=== PATIENT | female | born 1955 | race Caucasian/White ===

== ENCOUNTER → 2016-10-31 | Outpatient (CLI) | payer OTHER ==
[2016-10-31 13:48] LABS: ESTIMATED AVERAGE GLUCOSE 123 mg/dl; HA1C FLAG Normal (Normal)
[2016-10-31 13:57] LABS: ALT/SGPT 44 U/L (12-78); AST/SGOT 23 U/L (15-37); BLOOD UREA NITROGEN 15 mg/dl (7-18); BUN/CREATININE RATIO 20.5 (10-20); CARBON DIOXIDE 25 mmol/L (21-32); CHLORIDE 105 mmol/L (98-107); CHOLESTEROL 191 mg/dl (0-200); CREATININE 0.73 mg/dl (0.60-1.20); GLUCOSE 112 mg/dl (70-99); POTASSIUM 3.5 mmol/L (3.5-5.1); SODIUM 140 mmol/L (136-145)
[2016-10-31 14:00] LABS: ALB/GLOB RATIO 1.2 (0.9-2); ALKALINE PHOSPHATASE 86 U/L (45-117); CHOLESTEROL/HDL RATIO 3.5; HDL CHOLESTEROL 54 mg/dl; LDL CHOLESTEROL CALCULATED 93 mg/dl; TRIGLYCERIDES 221 mg/dl (0-150); VERY LOW DENSITY LIPOPROT CALC 44 mg/dl
== END | disposition home or self-care (01) ==
LOC: C.LAB 12:36
PROVIDERS: ATTEND Family Medicine
DX: E11.9 Type 2 diabetes mellitus without complications (principal)

== ENCOUNTER → 2017-04-23 | Outpatient (CLI) | payer OTHER ==
--- NOTE | 2017-04-23 16:03 | DIAGNOSTIC IMAGING REPORT ---
PELVIC COMPLETE NON OB, TRANSVAG-FEMALE PELVIS CLINICAL HISTORY: 61 years-old Female presenting with PELVIC PAIN, spotting after intercourse, postmenopausal, pain within the vagina, history of hysterectomy. TECHNIQUE: Real-time grayscale and color and spectral Doppler ultrasound imaging of the pelvis was performed first using a transabdominal probe and subsequently transvaginal for better characterization. COMPARISON: None. FINDINGS: Uterus: Surgically absent. A 0.3 x 0.2 x 0.2 cm hyperechoic focus is noted at the vaginal cuff with suggestion of posterior shadowing, consistent with calcification. Right adnexa: Not visualized, reportedly surgically absent. Left adnexa: Not visualized, reportedly surgically absent Other: No free fluid. IMPRESSION: Postsurgical changes of hysterectomy and likely bilateral salpingo-oophorectomy. Possible calcification at the vaginal cuff. If there is continuing clinical concern, cross-sectional imaging could be obtained for better characterization. Electronically signed by: Juliano Cabrales M.D. 04/23/2017 4:02 PM Dictated Date/Time: 04/23/2017 4:00 PM
== END | disposition home or self-care (01) ==
LOC: C.ULTR 14:54
PROVIDERS: ATTEND Family Medicine
DX: N94.10 Unspecified dyspareunia (principal)

== ENCOUNTER → 2017-08-27 | Outpatient (CLI) | payer OTHER ==
[~2017-08-27] MED LIST: GADAVIST IV PRN
--- NOTE | 2017-08-27 23:13 | DIAGNOSTIC IMAGING REPORT ---
Brain MRI WITH AND WITHOUT CONTRAST HISTORY: HEADACHE TECHNIQUE: Multiplanar multisequence MRI of the brain was performed both before and after the intravenous administration of contrast. COMPARISON STUDY: None. FINDINGS: There is no mass, hematoma, midline shift, or acute infarct. The paranasal sinuses are clear. The mastoid air cells are clear. The ventricles and sulci demonstrate mild age-related involutional changes. Scattered foci of T2 hyperintensity seen within the periventricular and subcortical white matter are nonspecific but suggestive of mild microvascular ischemic changes. The major vascular flow voids at the skull base are well-maintained. No abnormal enhancement. The orbits appear unremarkable. IMPRESSION: No acute intracranial abnormality. A few scattered foci of T2 hyperintensity seen within the periventricular and subcortical white matter are nonspecific but favor mild microvascular ischemic change. Electronically signed by: Alex Champion M.D. 08/27/2017 11:12 PM Dictated Date/Time: 08/27/2017 11:05 PM
== END | disposition home or self-care (01) ==
LOC: C.MRI 19:53
PROVIDERS: ATTEND Family Medicine
DX: R51 Headache (principal)

== ENCOUNTER → 2017-11-21 | Outpatient (CLI) | payer OTHER | END | disposition home or self-care (01) | LOC: C.LAB 11:46 | PROVIDERS: ATTEND Psychiatry & Neurology Neurology | DX: G43.909 Migraine, unspecified, not intractable, without status migrainosus (principal) ==

== ENCOUNTER 2018-09-16 16:57 | Inpatient (IN) ==
[2018-09-16 18:26] LABS: Basophils # (auto) 0.06 K/uL (0-0.2); Basophils % (auto) 0.6 %; Eosinophils # (auto) 0.35 K/uL (0-0.5); Eosinophils % (auto) 3.5 %; Hematocrit (blood only) 42.2 % (37-47); Hemoglobin 14.6 g/dL (12.0-16.0); Immature Granulocytes # (auto) 0.02 K/uL (0.00-0.02); Immature Granulocytes % (auto) 0.2 %; Lymphocytes # (auto) 3.34 K/uL (1.2-3.4); Lymphocytes % (auto) 33.2 %; Mean Corpuscular Hgb Conc 34.6 g/dL (32-36); Mean Corpuscular Volume 90.8 fL (80-100); Mean Platelet Volume 9.5 fL (7.4-10.4); Monocytes # (auto) 0.87 K/uL (0.11-0.59); Monocytes % (auto) 8.6 %; Neutrophils # (auto) 5.43 K/uL (1.4-6.5); Neutrophils % (auto) 53.9 %; Platelet Count 279 K/uL (130-400); RDW Coefficient of Variation 13.1 % (11.5-14.5); RDW Standard Deviation 42.7 fL (36.4-46.3); Red Blood Count 4.65 M/uL (4.2-5.4); White Blood Count 10.07 K/uL (4.8-10.8)
[2018-09-16 18:35] LABS: INR 1.1 (0.9-1.1); Partial Thromboplastin Ratio 0.9; Prothrombin Time 10.7 Seconds (9.0-12.0)
[2018-09-16 18:45] LABS: BUN Creatinine Ratio 22.6 (10-20); Blood Urea Nitrogen 17 mg/dl (7-18); Calcium 9.6 mg/dl (8.5-10.1); Carbon Dioxide 28 mmol/L (21-32); Chloride 103 mmol/L (98-107); Creatinine Clr Calc Pharmacy 88.4 ml/min; Est GFR (African American) 96.6; Est GFR (Non-African American) 83.3; Glucose 92 mg/dl (70-99); Magnesium 2.2 mg/dl (1.8-2.4); Potassium 4.1 mmol/L (3.5-5.1); Sodium 136 mmol/L (136-145)
[2018-09-16 18:49] LABS: Troponin I < 0.015 ng/ml (0-0.045)
--- NOTE | 2018-09-16 19:05 | CT Scan Report ---
CT head/brain wo con CLINICAL HISTORY: Left facial droop. Possible stroke COMPARISON STUDY: MRI the brain dated 08/27/2017 TECHNIQUE: Axial CT of the brain is performed from the vertex to the skull base. IV contrast was not administered for this examination. A dose lowering technique was utilized adhering to the principles of ALARA. CT DOSE: 537.48 mGy.cm FINDINGS: No intra or extra-axial mass lesions are visualized. There is no CT evidence of acute cortical infarc tion. There is no evidence of midline shift. There is no acute hemorrhage. No calvarial fractures ar e visualized. There are patchy white matter hypodensities likely on a small vessel basis. 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 There is no evidence of acute sinusitis IMPRESSION: No acute intracranial findings Electronically signed by: Melvin Cohen M.D. 09/16/2018 7:04 PM
[2018-09-16] MEDS ORDERED: KETOROLAC TROMETHAMINE 15 MG/ML VIAL IV STA ×2 (19:39→22:41)
[2018-09-16 20:26] LABS: Lyme Ab IgG w/WB Rflx Negative (Negative); Lyme Ab IgM w/WB Rflx Negative (Negative)
--- NOTE | 2018-09-16 21:35 | Emergency Department Note ---
Entered by Lakia Eduardo acting as a scribe for Abad Llanos History of Present Illness General Chief complaint: Stroke/CVA Symptoms Stated complaint: slurring speach, facial droop, headache Time Seen by Provider: 09/16/18 17:11 Source: patient and family History of Present Illness Provider complaint: stroke symptoms Onset (ago): day(s) (yesterday at 1500) Location: head Pain Consistency: + intermittent Maximum Pain Intensity: 5 Quality: + other (stroke symptoms) Associated symptoms: + headaches and + other (slurred speech, facial droop) The patient is a 62 year old female who presents to the Emergency Room with complaints of intermittent stroke symptoms beginning yesterday at 1500. The patient states that she has chronic fatigue but states that yesterday she was at the grocery store and had to hold onto the cart more than usual. The patient also reports having 2 episodes of slurred speech yesterday. She states that she has a CPAP and that she has been having problems and will see her doctor. The patient reports that she gets bad headaches when she does not use the CPAP. The patient reports that she did have a headache this morning which she rates at a 4 /10. She states that she chewed an aspirin afterward. Her daughter states that she noticed that the patient had a facial droop beginning this morning. Home Medications Home Medications Medication Instructions Recorded Confirmed Type Ddr Prime 1 cap PO QAM 09/16/18 History On Guard 1 cap PO QAM 09/16/18 History coQ10 (ubiquinol) 200 mg PO QAM 09/16/18 09/16/18 History losartan-hydrochlorothiazide 1 tab PO QAM 09/16/18 09/16/18 History metformin 500 mg PO BID 09/16/18 09/16/18 History montelukast 10 mg PO HS 09/16/18 09/16/18 History multivitamin 2 tab PO QAM 09/16/18 09/16/18 History pravastatin 40 mg PO HS 09/16/18 09/16/18 History venlafaxine 75 mg PO DAILY 09/16/18 09/16/18 History venlafaxine 150 mg PO DAILY 09/16/18 09/16/18 History Allergies Allergy/AdvReac Type Severity Reaction Status Date / Time amoxicillin Allergy Intermediate Hives and Verified 09/16/18 18:31 swelling Past Med/Surg History Medical History Chronic fatigue (Chronic) Social History Feels Safe at Home: Yes Smoking Status: Never smoker Preferred Language: Portuguese Review of Systems See HPI for pertinent positives & negatives. and A total of 10 systems reviewed and were otherwise negative Physical Exam Vital Signs Vital Signs - 24 hr 09/16/18 16:58 09/16/18 17:03 09/16/18 17:32 Temperature 36.8 C Temperature Source Oral Sepsis Recent Fever Within 48 Hours No Sepsis New/Unexplained Change in Mental Status No Sepsis Action Taken by Nursing No Action Required Pulse Rate 88 80 Respiratory Rate 17 16 Respiratory Effort / Characteristics Non-Labored Respiratory Depth Normal Respiratory Pattern Regular Blood Pressure 168/95 H Blood Pressure Mean 119 Blood Pressure Position Sitting Pulse Oximetry 98 Oxygen Delivery Method Room Air Room Air 09/16/18 17:40 09/16/18 17:48 09/16/18 17:49 Temperature Temperature Source Sepsis Recent Fever Within 48 Hours Sepsis New/Unexplained Change in Mental Status Sepsis Action Taken by Nursing Pulse Rate 78 78 79 Respiratory Rate 13 19 13 Respiratory Effort / Characteristics Respiratory Depth Respiratory Pattern Blood Pressure 171/95 H 170/112 H Blood Pressure Mean 120 131 Blood Pressure Position Pulse Oximetry Oxygen Delivery Method 09/16/18 17:51 09/16/18 18:00 09/16/18 18:10 Temperature Temperature Source Sepsis Recent Fever Within 48 Hours Sepsis New/Unexplained Change in Mental Status Sepsis Action Taken by Nursing Pulse Rate 78 79 81 Respiratory Rate 19 17 19 Respiratory Effort / Characteristics Respiratory Depth Respiratory Pattern Blood Pressure Blood Pressure Mean Blood Pressure Position Pulse Oximetry Oxygen Delivery Method 09/16/18 18:21 09/16/18 18:31 09/16/18 19:29 Temperature Temperature Source Sepsis Recent Fever Within 48 Hours Sepsis New/Unexplained Change in Mental Status Sepsis Action Taken by Nursing Pulse Rate 79 81 83 Respiratory Rate 14 13 Respiratory Effort / Characteristics Respiratory Depth Respiratory Pattern Blood Pressure Blood Pressure Mean Blood Pressure Position Pulse Oximetry Oxygen Delivery Method 09/16/18 19:30 09/16/18 19:31 Temperature Temperature Source Sepsis Recent Fever Within 48 Hours Sepsis New/Unexplained Change in Mental Status Sepsis Action Taken by Nursing Pulse Rate 79 80 Respiratory Rate 12 10 L Respiratory Effort / Characteristics Respiratory Depth Respiratory Pattern Blood Pressure 179/92 H Blood Pressure Mean 121 Blood Pressure Position Pulse Oximetry Oxygen Delivery Method GENERAL: She is oriented to person, place, and time. She appears well- developed and well-nourished. She does not appear distressed. ____ HENT: Exam performed. -Head: Normocephalic and atraumatic. - Right Ear: External ear normal. No mastoid tenderness. -Left Ear: External ear normal. No mastoid tenderness. -Mouth/Throat: The oropharynx is clear and moist. No trismus in the jaw. No dental abscesses or uvula swelling. No oropharyngeal exudate or tonsillar abscesses. ____ EYES: Conjunctivae and EOM are normal. Pupils are equal, round, and reactive to light. Right eye exhibits no discharge. Left eye exhibits no discharge. No scleral icterus. ____ NECK: Normal range of motion. Neck supple. No JVD present. No spinous process tenderness present. No carotid bruit present. No rigidity. No tracheal deviation and normal range of motion present. No Brudzinski's sign and no Kernig 's sign noted. ____ CV: Normal rate, regular rhythm, normal heart sounds and intact distal pulses. There is no peripheral edema. Palpable radial pulses bue. ____ PULM/CHEST: Effort normal and breath sounds normal. No respiratory distress. No stridor. She has no wheezes. She has no rales. -Chest Wall: She exhibits no tenderness. ____ ABD: The abdomen is soft. Bowel sounds are normal. She has no distension. No mass is present. There is no tenderness. There is no rebound, no guarding, no Valverde's sign and no tenderness at McBurney's point. Rovsig negative MUSC/SKEL: Normal range of motion. There is no peripheral edema, tenderness or deformity. LYMPH: No cervical adenopathy. ____ NEURO: NIHSS 2. Mild right-sided facial droop and mild dysarthria. SKIN: Skin is warm and dry. She is not diaphoretic. ____ PSYCH: She has a normal mood and affect. Her behavior is normal. Judgment and thought content normal. ____ Course 1717: Past medical records reviewed. The patient was evaluated in room C6, and a complete history and physical examination were performed. Patient is not a TPA candidate given her symptoms of dysarthria began over 24 hours ago. No code stroke was called at this time. 1938: The patient's CT and labs were within normal limits. I discussed the patient's case with Dr. Gerardo Gunderson. The patient most likely suffered a stroke. She will be admitted for further testing and neurology tests. Dr. Anaya asked for a CTA of the head and neck be done as well as a Lyme screen. Consultations Consultation #1: Dr. Gerardo Gunderson Time: 19:38 Administered Medications Discontinued Medications Ketorolac Tromethamine (Toradol) 15 mg IV NOW STA Stop: 09/16/18 19:40 Last Admin: 09/16/18 19:57 Dose: 15 mg Medical Decision Making Medical Records Attestation: I reviewed the patient's medical records. Home Medications Current Medication List: was personally reviewed by me Laboratory Data Attestation: I reviewed the patient's lab results. Result diagrams: 09/16/18 18:02 09/16/18 18:02 Lab Results 09/16/18 09/16/18 09/16/18 Range/Units 18:02 18:02 18:02 WBC 10.07 (4.8-10.8) K/uL RBC 4.65 (4.2-5.4) M/uL Hgb 14.6 (12.0-16.0) g/dL Hct 42.2 (37-47) % MCV 90.8 (80-100) fL MCH 31.4 (25-34) pg MCHC 34.6 (32-36) g/dL RDW Std Deviation 42.7 (36.4-46.3) fL RDW Coeff of Homa 13.1 (11.5-14.5) % Plt Count 279 (130-400) K/uL MPV 9.5 (7.4-10.4) fL Immature Gran % (Auto) 0.2 % Neut % (Auto) 53.9 % Lymph % (Auto) 33.2 % [place] % (Auto) 8.6 % Eos % (Auto) 3.5 % Baso % (Auto) 0.6 % Immature Gran # (Auto) 0.02 (0.00-0.02) K/uL Neut # (Auto) 5.43 (1.4-6.5) K/uL Lymph # (Auto) 3.34 (1.2-3.4) K/uL [place] # (Auto) 0.87 H (0.11-0.59) K/uL Eos # (Auto) 0.35 (0-0.5) K/uL Baso # (Auto) 0.06 (0-0.2) K/uL PT 10.7 (9.0-12.0) Seconds INR 1.1 (0.9-1.1) APTT 24.0 (21.0-31.0) Seconds PTT Ratio 0.9 Sodium 136 (136-145) mmol/L Potassium 4.1 (3.5-5.1) mmol/L Chloride 103 (98-107) mmol/L Carbon Dioxide 28 (21-32) mmol/L Anion Gap 5.0 (3-11) BUN 17 (7-18) mg/dl Creatinine 0.77 (0.6-1.2) mg/dl Est Cr Clr Drug Dosing 88.4 ml/min Est GFR ( Amer) 96.6 Est GFR (Non-Af Amer) 83.3 BUN/Creatinine Ratio 22.6 H (10-20) Glucose 92 (70-99) mg/dl POC Glucose (70-99) Calcium 9.6 (8.5-10.1) mg/dl Magnesium 2.2 (1.8-2.4) mg/dl Troponin I < 0.015 (0-0.045) ng/ml Lyme Disease IgG Ab (Negative) Lyme Disease IgM Ab (Negative) Blood Type Antibody Screen 09/16/18 09/16/18 09/16/18 Range/Units 18:02 18:10 18:13 WBC (4.8-10.8) K/uL RBC (4.2-5.4) M/uL Hgb (12.0-16.0) g/dL Hct (37-47) % MCV (80-100) fL MCH (25-34) pg MCHC (32-36) g/dL RDW Std Deviation (36.4-46.3) fL RDW Coeff of [place] (11.5-14.5) % Plt Count (130-400) K/uL MPV (7.4-10.4) fL Immature Gran % (Auto) % Neut % (Auto) % Lymph % (Auto) % [place] % (Auto) % Eos % (Auto) % Baso % (Auto) % Immature Gran # (Auto) (0.00-0.02) K/uL Neut # (Auto) (1.4-6.5) K/uL Lymph # (Auto) (1.2-3.4) K/uL [place] # (Auto) (0.11-0.59) K/uL Eos # (Auto) (0-0.5) K/uL Baso # (Auto) (0-0.2) K/uL PT (9.0-12.0) Seconds INR (0.9-1.1) APTT (21.0-31.0) Seconds PTT Ratio Sodium (136-145) mmol/L Potassium (3.5-5.1) mmol/L Chloride (98-107) mmol/L Carbon Dioxide (21-32) mmol/L Anion Gap (3-11) BUN (7-18) mg/dl Creatinine (0.6-1.2) mg/dl Est Cr Clr Drug Dosing ml/min Est GFR ( Amer) Est GFR (Non-Af Amer) BUN/Creatinine Ratio (10-20) Glucose (70-99) mg/dl POC Glucose 94 (70-99) Calcium (8.5-10.1) mg/dl Magnesium (1.8-2.4) mg/dl Troponin I (0-0.045) ng/ml Lyme Disease IgG Ab Negative (Negative) Lyme Disease IgM Ab Negative (Negative) Blood Type O Positive Antibody Screen NEGATIVE Imaging Data Radiologist's Impression: Radiology results as stated below per my review and the radiologist's interpretation: CT head/brain wo con CLINICAL HISTORY: Left facial droop. Possible stroke COMPARISON STUDY: MRI the brain dated 08/27/2017 TECHNIQUE: Axial CT of the brain is performed from the vertex to the skull base. IV contrast was not administered for this examination. A dose lowering technique was utilized adhering to the principles of ALARA. CT DOSE: 537.48 mGy.cm FINDINGS: No intra or extra-axial mass lesions are visualized. There is no CT evidence of acute cortical infarction. There is no evidence of midline shift. There is no acute hemorrhage. No calvarial fractures are visualized. There are patchy white matter hypodensities likely on a small vessel basis. 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 There is no evidence of acute sinusitis IMPRESSION: No acute intracranial findings Electronically signed by: Melvin Cohen M.D. 09/16/2018 7:04 PM ECG Data Attestation: I personally reviewed and interpreted this ECG as follows: Indication: other (stroke symptoms) Rate (beats per minute): 79 Rhythm: sinus rhythm Findings: + other ([place], QRS, QTC within normal limits); no ST depression and no ST elevation Blood Pressure Blood Pressure Findings: Elevated blood pressure Blood Pressure Disposition: further management by hospitalist MDM Narrative 1716: Past medical records reviewed. The patient was evaluated in room C6, and a complete history and physical examination were performed. Patient is not a TPA candidate given her symptoms of dysarthria began over 24 hours ago. No code stroke was called at this time. 193: The patient's CT and labs were within normal limits. I discussed the patient's case with Dr. Anaya[facility]. The patient most likely suffered a stroke. She will be admitted for further testing and neurology tests. Dr. Anaya asked for a CTA of the head and neck be done as well as a Lyme screen. Impression & Plan Stroke Discharge Plan Visit Data Chief Complaint: Stroke/CVA Symptoms Stated Complaint: slurring speach, facial droop, headache ED Provider: Abad Llanos Discharge Problem: Stroke Patient Disposition: Being Evaluated by Hospitalist Forms Stand Alone Forms: My [facility] Prescriptions Prescriptions: No Action venlafaxine 75 mg capsule,extended release 24hr 75 mg PO DAILY RF: 0 pravastatin 40 mg tablet 40 mg PO HS RF: 0 venlafaxine 150 mg capsule,extended release 24hr 150 mg PO DAILY RF: 0 montelukast 10 mg tablet 10 mg PO HS RF: 0 losartan-hydrochlorothiazide 50-12.5 mg tablet 1 tab PO QAM RF: 0 metformin 500 mg tablet extended release 24 hr 500 mg PO BID RF: 0 multivitamin Tablet,Chewable 2 tab PO QAM RF: 0 coQ10 (ubiquinol) 200 mg Capsule 200 mg PO QAM RF: 0 Ddr Prime 1 cap PO QAM RF: 0 On Guard 1 cap PO QAM RF: 0 Referrals Referrals: Michelle Ojeda MD [Primary Care Provider] - The scribe's documentation has been prepared under my direction and personally reviewed by me in its entirety. I confirm that the note above accurately reflects all work, treatment, procedures, and medical decision making performed by me.
[2018-09-17] MEDS ORDERED: GADOBUTROL 65ML VIAL IV PRN (01:23)
[2018-09-17] MEDS ORDERED: ACETAMINOPHEN 1000 MG/100 ML IV IV PRN (01:27)
[2018-09-17] MEDS ORDERED: NSS + 20MEQ KCL 20 MEQ/1,000 ML BAG IV SCH (01:27)
[2018-09-17] MEDS ORDERED: PHARMACIST DISCHARGE MED REC CONSULT PRN (01:27)
[2018-09-17 02:08] LABS: Basophils # (auto) 0.06 K/uL (0-0.2); Basophils % (auto) 0.6 %; Eosinophils # (auto) 0.36 K/uL (0-0.5); Eosinophils % (auto) 3.3 %; Hematocrit (blood only) 39.9 % (37-47); Hemoglobin 13.6 g/dL (12.0-16.0); Immature Granulocytes # (auto) 0.02 K/uL (0.00-0.02); Immature Granulocytes % (auto) 0.2 %; Lymphocytes # (auto) 2.93 K/uL (1.2-3.4); Lymphocytes % (auto) 26.9 %; Mean Corpuscular Hgb Conc 34.1 g/dL (32-36); Mean Corpuscular Volume 90.7 fL (80-100); Mean Platelet Volume 9.2 fL (7.4-10.4); Monocytes # (auto) 0.97 K/uL (0.11-0.59); Monocytes % (auto) 8.9 %; Neutrophils # (auto) 6.54 K/uL (1.4-6.5); Neutrophils % (auto) 60.1 %; Platelet Count 273 K/uL (130-400); RDW Coefficient of Variation 12.9 % (11.5-14.5); White Blood Count 10.88 K/uL (4.8-10.8)
[2018-09-17 02:17] LABS: INR 1.1 (0.9-1.1); Partial Thromboplastin Time 25.4 Seconds (21.0-31.0)
[2018-09-17 02:25] LABS: Albumin Level 4.1 gm/dl (3.4-5.0); BUN Creatinine Ratio 21.8 (10-20); Bilirubin Direct 0.2 mg/dl (0-0.2); Calcium 9.2 mg/dl (8.5-10.1); Creatinine Clr Calc Pharmacy 88.4 ml/min; Est GFR (African American) 96.6; Est GFR (Non-African American) 83.3; Potassium 3.6 mmol/L (3.5-5.1)
[2018-09-17 02:27] LABS: Albumin Globulin Ratio 1.2 (0.9-2); Bilirubin,Total 0.7 mg/dl (0.2-1); Globulin 3.4 gm/dl (2.5-4.0); Total Protein 7.5 gm/dl (6.4-8.2)
--- NOTE | 2018-09-17 02:29 | History & Physical Report ---
Date of Service September 16, 2018 Assessment & Plan (1) Stroke: Symptoms of facial droop, slurred speech and right upper extremity transient weakness. CT head negative for acute event. CTA head neck not done due to insufficient IV access. Order MRI of brain without contrast. Order MRA of head without contrast. Order MRA of neck without and with contrast. Aspirin 324 mg p.o. daily in a.m., however, if not cleared by speech therapy, changed to chewable. Order arterial hypercoagulable workup. Neurochecks. Stroke without TPA protocol ordered. Present on Admission?: Yes (2) Hypertension: Allow permissive hypertension overnight. Patient is n.p.o. Hold losartan/HCTZ. Lopressor 5 mg IV every 4 hours as needed systolic blood pressure greater than 170. Present on Admission?: Yes (3) Hyperlipidemia: Check a fasting lipid panel. When cleared by speech therapy, will resume pravastatin 40 mg at bedtime. Present on Admission?: Yes (4) Diabetes mellitus: Hold metformin. N.p.o. status until cleared by speech therapy. Placed on Accu-Cheks before meals and at bedtime with NovoLog coverage per scale. Check hemoglobin A1c. Present on Admission?: Yes (5) Anxiety and depression: When no longer n.p.o. and cleared by speech therapy, will resume venlafaxine 225 mg daily. Present on Admission?: Yes (6) Chronic fatigue syndrome: Treated as with anxiety depression above. Present on Admission?: Yes History of Present Illness Chief Complaint: The patient presents to the emergency department with slurring of speech, facial droop and headache. Primary Care Provider: Michelle Ojeda MD The patient is a 62-year-old female who developed initial symptoms of 2 episodes of slurred speech and facial droop on the evening of 09/15, that resolved spontaneously, and then recurred on the morning of 09/16. She has history of chronic fatigue, and while at the grocery store, had significantly more difficulty walking than usual. She is also had an intermittent headache since morning of 09/16. Because of the persistence of her symptoms, her family had her come to the emergency department for assessment. She reports no difference in usual activities, sleeping habits, eating habits etc. over the previous week. She is never had these symptoms in the past. She does follow with Dr. Carmona for chronic fatigue syndrome. She also reports some briefly decreased strength in her right upper extremity. Allergies Allergy/AdvReac Type Severity Reaction Status Date / Time amoxicillin Allergy Intermediate Hives and Verified 09/16/18 18:31 swelling Home Medications Home Medications Medication Instructions Recorded Confirmed Type Ddr Prime 1 cap PO QAM 09/16/18 History On Guard 1 cap PO QAM 09/16/18 History coQ10 (ubiquinol) 200 mg PO QAM 09/16/18 09/16/18 History losartan-hydrochlorothiazide 1 tab PO QAM 09/16/18 09/16/18 History metformin 500 mg PO BID 09/16/18 09/16/18 History montelukast 10 mg PO HS 09/16/18 09/16/18 History multivitamin 2 tab PO QAM 09/16/18 09/16/18 History pravastatin 40 mg PO HS 09/16/18 09/16/18 History venlafaxine 75 mg PO DAILY 09/16/18 09/16/18 History venlafaxine 150 mg PO DAILY 09/16/18 09/16/18 History Past Med/Surg History Social History Feels Safe at Home: Yes Smoking Status: Never smoker Preferred Language: Faroese Review of Systems The patient denies chest pain, palpitations, shortness of breath, dyspnea on exertion, cough, lower extremity swelling, sore throat, fevers, chills, sweats, nausea, vomiting, diarrhea , constipation, abdominal pain, pelvic pain, blood in urine or stool, dysuria, urinary frequency or urgency, memory loss, loss of consciousness, rash, abnormal bruising or bleeding, generalized arthralgias or myalgias, back or neck pain, or night sweats. The review of systems is otherwise negative other than for that already noted above, and at least 10 systems have been reviewed. Physical Exam 2 Vital Signs (Past 24 Hours): Last Vital Signs Temp 36.8 C 09/16/18 17:03 Pulse 85 09/16/18 22:51 Resp 15 09/16/18 22:51 BP 149/100 H 09/16/18 22:51 Pulse Ox 98 09/16/18 17:03 Physical Exam: The patient is awake, alert and oriented 3, normocephalic and atraumatic, lying in bed and in no acute distress. HEENT--PERRL, EOMI, mucous membranes and oropharynx dry. Neck--supple. No JVD. No bruits. Thyroid normal, trachea midline, no adenopathy. Heart--normal S1 and S2. No murmurs, rubs or gallops. Lungs--clear bilaterally, no respiratory distress, no accessory muscle use. Abdomen--normal bowel sounds and soft. Nontender. Nondistended, no hernias or masses, no organomegaly. Extremities--no cyanosis or clubbing. No edema. There are good distal pulses b/ l. Dermatologic--normal skin turgor, normal color, no abnormal lymph nodes, no rash. Neurologic--cranial nerves II through XII grossly intact. Rheumatologic--normal range of motion. Psychiatric--normal affect. Results & Data Laboratory Results Laboratory Results WBC 10.88 K/uL (4.8-10.8) H 09/17/18 01:44 RBC 4.40 M/uL (4.2-5.4) 09/17/18 01:44 Hgb 13.6 g/dL (12.0-16.0) 09/17/18 01:44 Hct 39.9 % (37-47) 09/17/18 01:44 MCV 90.7 fL (80-100) 09/17/18 01:44 MCH 30.9 pg (25-34) 09/17/18 01:44 MCHC 34.1 g/dL (32-36) 09/17/18 01:44 RDW Std Deviation 43.0 fL (36.4-46.3) 09/17/18 01:44 RDW Coeff of [place] 12.9 % (11.5-14.5) 09/17/18 01:44 Plt Count 273 K/uL (130-400) 09/17/18 01:44 MPV 9.2 fL (7.4-10.4) 09/17/18 01:44 Immature Gran % (Auto) 0.2 % 09/17/18 01:44 Neut % (Auto) 60.1 % 09/17/18 01:44 Lymph % (Auto) 26.9 % 09/17/18 01:44 [place] % (Auto) 8.9 % 09/17/18 01:44 Eos % (Auto) 3.3 % 09/17/18 01:44 Baso % (Auto) 0.6 % 09/17/18 01:44 Immature Gran # (Auto) 0.02 K/uL (0.00-0.02) 09/17/18 01:44 Neut # (Auto) 6.54 K/uL (1.4-6.5) H 09/17/18 01:44 Lymph # (Auto) 2.93 K/uL (1.2-3.4) 09/17/18 01:44 [place] # (Auto) 0.97 K/uL (0.11-0.59) H 09/17/18 01:44 Eos # (Auto) 0.36 K/uL (0-0.5) 09/17/18 01:44 Baso # (Auto) 0.06 K/uL (0-0.2) 09/17/18 01:44 PT 11.0 Seconds (9.0-12.0) 09/17/18 01:44 INR 1.1 (0.9-1.1) 09/17/18 01:44 APTT 25.4 Seconds (21.0-31.0) 09/17/18 01:44 PTT Ratio 1.0 09/17/18 01:44 Sodium 136 mmol/L (136-145) 09/16/18 18:02 Potassium 4.1 mmol/L (3.5-5.1) 09/16/18 18:02 Chloride 103 mmol/L (98-107) 09/16/18 18:02 Carbon Dioxide 28 mmol/L (21-32) 09/16/18 18:02 Anion Gap 5.0 (3-11) 09/16/18 18:02 BUN 17 mg/dl (7-18) 09/16/18 18:02 Creatinine 0.77 mg/dl (0.6-1.2) 09/16/18 18:02 Est Cr Clr Drug Dosing 88.4 ml/min 09/16/18 18:02 Est GFR ( Amer) 96.6 09/16/18 18:02 Est GFR (Non-Af Amer) 83.3 09/16/18 18:02 BUN/Creatinine Ratio 22.6 (10-20) H 09/16/18 18:02 Glucose 92 mg/dl (70-99) 09/16/18 18:02 POC Glucose 94 (70-99) 09/16/18 18:13 Calcium 9.6 mg/dl (8.5-10.1) 09/16/18 18:02 Magnesium 2.2 mg/dl (1.8-2.4) 09/16/18 18:02 Troponin I < 0.015 ng/ml (0-0.045) 09/16/18 18:02 Lyme Disease IgG Ab Negative (Negative) 09/16/18 18:10 Lyme Disease IgM Ab Negative (Negative) 09/16/18 18:10 Blood Type O Positive 09/16/18 18:02 Antibody Screen NEGATIVE 09/16/18 18:02 Diagnostic Findings [place], [place] [phone] CT Scan Report Patient: ROJAS WATERS Date: 09/16/18 MR#: [id number]: [address] [facility] Acct ID:[id number]: Date: 1955[facility] Zip: [place] [address] Age: 62Location: ED Sex: F Room/Bed: Att Phy: Diagnosis: slurring speach, facial droop, headache Lori Phy: Michelle Ojeda, MDService Date: 09/16/18 Fam Phy: Interpreting Phy: Melvin Cohen MD Admit Phy: Ordering Phy: Abad Llanos M.D. cc: ~ CT head/brain wo con CLINICAL HISTORY: Left facial droop. Possible stroke COMPARISON STUDY: MRI the brain dated 08/27/2017 TECHNIQUE: Axial CT of the brain is performed from the vertex to the skull base. IV contrast was not administered for this examination. A dose lowering technique was utilized adhering to the principles of ALARA. CT DOSE: 537.48 mGy.cm FINDINGS: No intra or extra-axial mass lesions are visualized. There is no CT evidence of acute cortical infarction. There is no evidence of midline shift. There is no acute hemorrhage. No calvarial fractures are visualized. There are patchy white matter hypodensities likely on a small vessel basis. 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 There is no evidence of acute sinusitis IMPRESSION: No acute intracranial findings Electronically signed by: Melvin Cohen M.D. 09/16/2018 7:04 PM Dictated: 09/16/181901 Transcribed: 09/16/18 190 Code Status & VTE Plan Code Status Full code VTE Prophylaxis Plan VTE Prophylaxis will be ordered: Yes _ (1) Stroke CVA mechanism: unspecified Laterality of affected vessel: Precerebral and cerebral artery: Qualified Code(s): I63.9 - Cerebral infarction, unspecified
[2018-09-17] MEDS ORDERED: METOPROLOL TARTRATE 1 MG/ML VIAL IV PRN (02:40)
--- NOTE | 2018-09-17 06:43 | Magnetic Resonance Report ---
MR angio head wo con HISTORY: Mental status change stroke/CVA symtpoms TECHNIQUE: 3-D [id number] MRA of the brain was performed without contrast. COMPARISON STUDY: None. FINDINGS: Visualized intracranial internal carotid arteries, distal vertebral arteries, and basilar a rtery are widely patent. There is no significant stenosis, occlusion, or aneurysm seen within the renetta ateral ACAs, MCAs, or broach trouble shooter. IMPRESSION: No significant stenosis, occlusion, or aneurysm within the [place] of [place]. The above report was generated using voice recognition software. It may contain grammatical, syntax or spelling errors. Electronically signed by: Amilcar Ochoa M.D. 09/17/2018 6:42 AM
[2018-09-17 07:00] LABS: Estimated Average Glucose 143 mg/dl
--- NOTE | 2018-09-17 07:16 | Magnetic Resonance Report ---
MRI OF THE BRAIN WITHOUT CONTRAST CLINICAL HISTORY: stroke/cva symptoms COMPARISON STUDY: MRI of the brain August 27, [address] September 16, 2018. TECHNIQUE: Utilizing a 1.5 Michelle magnet and dedicated coil, multiplanar, multiecho imaging of the bra in was performed without IV contrast. FINDINGS: Note is made of a 1 cm focus of restricted diffusion within the periventricular left fronta l lobe within the [place] radiata. There is no mass effect or evidence for hemorrhage. Ventricular sys tem is stable. Basilar cisterns are patent. There are no extra-axial collections. White matter T2 hyp erintense foci suggest small vessel disease. Calvarial signal is maintained. Orbits are unremarkable. No intracranial masses are identified on this unenhanced exam. IMPRESSION: Small acute infarct within the periventricular left frontal lobe. Electronically signed by: Jv Ojeda M.D. 09/17/2018 7:15 AM
--- NOTE | 2018-09-17 07:28 | Magnetic Resonance Report ---
MR angio neck wo/w con HISTORY: 62 years-old Female stroke/CVA symptoms acute strokelike symptoms COMPARISON: MRI brain and MRA head 09/16/2017 TECHNIQUE: MRA of the neck was obtained both with and without the use of 9.6 mL Gadavist with 3-D jenny e-of-flight sequencing and MIP reformats. All measurements were obtained according to NASCET criteria . FINDINGS: Bilateral common and internal carotid arteries are widely patent. The visualized subclavian arteries are also widely patent. The vertebral arteries are codominant and widely patent. Mild tortuosity abou t the mid V2 segment left vertebral artery. Visualized basilar artery appears normal and patent. No a neurysm, dissection, high-grade stenosis or proximal branch occlusion. IMPRESSION: Unremarkable MRA of the neck without aneurysm, dissection, high-grade stenosis or proxima l branch occlusion. The above report was generated using voice recognition software. It may contain grammatical, syntax o r spelling errors. Electronically signed by: Humble Mendoza M.D. 09/17/2018 7:27 AM
[2018-09-17] MEDS ORDERED: ASPIRIN 81 MG ECTAB PO SCH (09:00)
[2018-09-17] MEDS ORDERED: ASPIRIN 81 MG CHEW PO SCH (09:00)
[2018-09-17] MEDS ORDERED: HEPARIN SOD 5,000 UNIT/0.5 ML VIAL SQ SCH (09:00)
--- NOTE | 2018-09-17 10:40 | Neurology Consultation ---
Date of Consultation September 17, 2018 Assessment & Plan (1) Stroke: This is a 62-year-old right-handed female who presents with subacute posterior left frontal lacunar stroke with residual neurological deficits of mild right face droop and dysarthria. Stroke risk factors include hypertension , dyslipidemia, diabetes type 2, and obstructive sleep apnea not on CPAP. Stroke etiology likely small vessel ischemic. Recommendation: Agree with adding aspirin 81 mg daily for secondary stroke prevention. Follow-up echocardiogram results to make sure there is no signs of cardioembolic sources for stroke. Beta 2 glycoprotein's, homocystine, lupus anticoagulant, cardiolipin antibodies are pending and can be followed up in neurology clinic Agree with sleep medicine follow-up next week regarding issues with CPAP since this is a minor stroke risk factors as well. More than likely untreated obstructive sleep apnea is also contributing to her fatigue and headaches. Follow-up PT/OT and speech therapies for discharge planning. Blood pressure recommendations while in hospital 175/95-150/80 (MAPS 90-110) Avoid hypotension and dehydration Stroke risk factor modifications and recommendations: Blood pressure recommendations for the first month post hospital discharge 150/ 90-130/80, and after that blood pressure recommendations 130/80-110/70 Total cholesterol goal 100- 200 and LDL goal less than 70 Hemoglobin A1c goal less than 7 (at goal) Encourage cardiovascular exercise at least 3 times a week for 30 minutes. Recommend Holter monitor as an outpatient to rule out paroxysmal A. fib Follow-up in neurology clinic in 1 month for post stroke hospital follow-up. Thank you for allowing me to participate in this patient's care. If there is any questions or concerns, feel free to call/page me. No neurological barriers to discharge later today if desired. History of Present Illness Reason for Consultation: Stroke symptoms Attending Physician: Kremit Hidalgo MD History of Present Illness This is a 62-year-old right-handed female who presents for symptoms concerning for stroke. Reports that the day before her presentation she did notice that her speech was off and it sounded like she was drunk even though she does not drink. Noted increased tiredness and fatigue. When she woke up the next morning on the day of presentation she noted that she had a severe headache. When she went to work other people observe that she had a right facial droop the patient then presented to the emergency room. She reports that she had some mild right hand numbness while being evaluated in the emergency room. She also noted some mild proximal weakness of her right upper extremity but initially had thought that maybe it was just her fibromyalgia. Denies any other focal weakness or numbness anywhere else. Denies any visual changes. Denies any other focal neurological deficits. Has never had this before. She does report that for the past week she was having some chest pain but reports that with her chronic fatigue and fibromyalgia she intermittently does get chest pain. She denies any heart palpitations. MRI of the brain report and images reviewed by myself. The patient does have a subacute posterior left frontal lacunar infarct in the periventricular area. MRA of the head and neck was unremarkable. No signs of significant large vessel atherosclerotic disease Hemoglobin A1c 6.6. Total cholesterol 205, LDL 103, HDL 64, triglycerides 191 Past medical history: Hypertension, dyslipidemia, diabetes type 2, obstructive sleep apnea on CPAP, depression/anxiety, chronic fatigue/fibromyalgia, migrainous type headaches (patient denies migraine headaches when she was younger. She did not tolerate trial of. May last year). Patient has been seen by Dr. Carmona in neurology clinic previously for evaluation of nonspecific T2 hyperintensities on MRI which she felt were likely small vessel ischemic and not demyelination. Family history of mother with cardiac valve replacement, paternal grandfather with CAD, maternal grandmother with CAD Social history: Patient is normally independent her activities of daily living. No tobacco use. No alcohol use. No illegal drug use. Allergies Allergy/AdvReac Type Severity Reaction Status Date / Time amoxicillin Allergy Intermediate Hives and Verified 09/16/18 18:31 swelling Home Medications Home Medications Medication Instructions Recorded Confirmed Type Ddr Prime 1 cap PO QAM 09/16/18 History On Guard 1 cap PO QAM 09/16/18 History coQ10 (ubiquinol) 200 mg PO QAM 09/16/18 09/16/18 History losartan-hydrochlorothiazide 1 tab PO QAM 09/16/18 09/16/18 History metformin 500 mg PO BID 09/16/18 09/16/18 History montelukast 10 mg PO HS 09/16/18 09/16/18 History multivitamin 2 tab PO QAM 09/16/18 09/16/18 History pravastatin 40 mg PO HS 09/16/18 09/16/18 History venlafaxine 75 mg PO DAILY 09/16/18 09/16/18 History venlafaxine 150 mg PO DAILY 09/16/18 09/16/18 History Patient History Medical History HLD (hyperlipidemia) Chronic fatigue (Chronic) Social History Current Living Situation: Spouse Other Information That Helps Us Care for You: No Feels Safe at Home: Yes Safety Concerns: Feels Safe At This Time Smoking Status: Never smoker Hx Alcohol Use: No Hx Substance Use: No Beliefs That Will Affect Care: None Preferred Language: Thai Communication Ability: Effective Fisher Hand Line Required: No Review of Systems Complete review of systems otherwise negative except for the above-noted in HPI Physical Exam 2 Vital Signs (Past 24 Hours): Last Vital Signs Temp 37.1 C 09/17/18 07:23 Pulse 75 09/17/18 08:00 Resp 16 09/17/18 07:23 BP 153/79 H 09/17/18 07:23 Pulse Ox 93 09/17/18 07:23 Physical Exam: Gen.: Patient is alert and oriented in no acute distress lying in bed Heart: Regular rate and rhythm Extremities: No gross deformities or rashes noted Neurological examination: Mental status: Patient is alert and oriented to person place and time. Able to give his own history. Attention concentration normal for the situation. Remote and recent memory intact Speech is fluent with possible mild dysarthria Cranial nerves: Visual estrella intact. Funduscopic examination was unremarkable with no signs of papilledema. Pupils equally round and reactive to light. Extraocular muscles intact without nystagmus. Mild right lower facial droop. Facial sensation intact. Tongue midline. Good palatal elevation. Good shoulder shrug bilaterally. Hearing grossly intact voice. Strength: 5/5 both proximal and distal in all extremities .Tone is normal. Sensation: Grossly intact to light touch in all extremities Deep tendon reflexes: +1 in bilateral biceps and patellar. Coordination: Patient has good finger to nose without dysmetria. Station within the bed is normal. _ (1) Stroke CVA mechanism: unspecified Laterality of affected vessel: Precerebral and cerebral artery: Qualified Code(s): I63.9 - Cerebral infarction, unspecified
[2018-09-17] MEDS ORDERED: STROKE PATIENT DISCHARGE STA (16:33)
--- NOTE | 2018-09-17 16:46 | Discharge Summary ---
Date of Service September 17, 2018 Admission HPI Per Admitting Provider The patient is a 62-year-old female who developed initial symptoms of 2 episodes of slurred speech and facial droop on the evening of 09/15, that resolved spontaneously, and then recurred on the morning of 09/16. She has history of chronic fatigue, and while at the grocery store, had significantly more difficulty walking than usual. She is also had an intermittent headache since morning of 09/16. Because of the persistence of her symptoms, her family had her come to the emergency department for assessment. She reports no difference in usual activities, sleeping habits, eating habits etc. over the previous week. She is never had these symptoms in the past. She does follow with Dr. Carmona for chronic fatigue syndrome. She also reports some briefly decreased strength in her right upper extremity. Principal Diagnosis Left frontal lobe stroke Discharge Exam Constitutional WD/WN, vitals as above + obese Eyes EOM intact bilaterally; no conjunctival abnormality ENMT external ear and nose normal, oropharynx normal Neck trachea midline, no thyromegaly normal visual inspection Respiratory normal respiratory effort, lungs clear to auscultation no respiratory distress Cardiovascular RRR, no murmur, no edema Gastrointestinal (Abdomen) Inspection/Auscultation: abdomen normal to inspection; abdomen not distended Musculoskeletal no cyanosis or clubbing, extremities motor strength 5/5 Skin no rashes, warm and dry Neurologic moves all extremities and awake Speech / Cognition: normal speech Mild left facial droop Psychiatric Orientation: alert, oriented to person and cooperative Discharge Data Allergies Allergy/AdvReac Type Severity Reaction Status Date / Time amoxicillin Allergy Intermediate Hives and Verified 09/16/18 18:31 swelling Consultations 09/16/18 19:32 ED Decision to Admit Stat 09/17/18 01:27 Consult Case Management - Discharge Planning Routine Consult Neurology Routine Ordered Studies 09/16/18 17:23 CT head/brain wo con Stat 09/16/18 21:14 MR brain wo con Urgent 09/17/18 00:08 MR angio head wo con Urgent MR angio neck wo/w con Urgent Hospital Course (1) Stroke: MRI brain showed a fredis-ventricular left frontal lobe infarct. All deficits resolved except for a very mild facial droop. Echo did not show any PFO , and tele showed no atrial fibrillation. - Patient was seen by neurology with rec to start aspirin. - Discussed switch to atorvastatin (high intensity statin), but patient declined due to prior myopathies with simvastatin. Patient was encouraged to discuss with PCP and Dr. Carmona. - Will get outpatient event monitor to watch for afib. - Hypercoaguable work-up was sent and still pending on discharge. Outpatient review needed. (2) Hypertension: Allowed permissive hypertension overnight. - Restart home meds with goal BP of <130/70 in the outpatient setting. (3) Hyperlipidemia: Fasting lipid was checked and total cholesterol was 205 with LDL of 103. - Discussed switch to atorvastatin (high intensity statin), but patient declined due to prior myopathies with simvastatin. Patient was encouraged to discuss with PCP and Dr. Carmona. (4) Diabetes mellitus: A1c was 6.6% inpatient. Held metformin while inpatient. Restart on discharge. (5) Anxiety and depression: Continued venlafaxine (6) Chronic fatigue syndrome: Treated as with anxiety depression above. Total Time Total Time Spent Total Time Spent (In Minutes): 40 Total Time Includes: Examination of the Patient, Discharge Planning and Medication Reconciliation Discharge Plan Discharge Items Patient Disposition: Home - Self-Care Reason For Visit: TIA/STROKE SYMPTOMS Discharge Diagnosis: Stroke Condition: Good Discharge Goals: Improve disease control and Improve function Activity: Resume your previous activity Non-emergency contact: Primary Care Provider and Neurologist Call non-emergency contact if: your symptoms worsen and your temperature is above 101 Follow-up/Referrals: Michelle Ojeda MD [Primary Care Provider] - 09/28/18 2:00 pm (Please, follow up with Dr. Ojeda on ThursdaySeptember 28 at 2:00 pm. *If you need to change this appointment, call the office at [phone].) Amisha Prado PA-C [Physician Insulation Extruder Operator] - 10/13/18 10:00 am (Please, follow up at [facility] Neu[facility] Office on ThursdayOctober 13 at 10:00 am. *This office is located at [address] [facility] in [place]. If you need to change this appointment, call the office at [phone].) Diet: Carb Consistent or DM2 and Heart Healthy Addtl Provider Instructions: Ms. Johnston, You were admitted to the hospital with stroke that presented as facial droop, slurred speech, and weakness. We did an MRI that showed you had a small stroke in the left frontal lobe which caused these symptoms. Fortunately, most of the symptoms resolved except for a small amount of facial droop. You have several risk factors for stroke including high blood pressure, diabetes, and high cholesterol. We did an echo (sonogram) of your heart which looked good. You did not have any abnormal heart rhythms while you were here, and we are setting you up for a monitor at home to monitor your heart rhythm for 1 week. Please take a baby aspirin (81 mg) along with the pravastatin you currently take to help reduce future stroke risk. Please continue the metformin and see your primary care doctor to consider starting another medication to help get your A1c lower to help lower your risk of stroke and heart attacks. Please come back to the hospital if you have any concerning symptoms such as weakness, slurred speech, or facial droop. Risk Factors for Stroke: You can reduce your chances of stroke by working with your medical provider to adopt a healthy lifestyle. Some specific ways to lower your chance of stroke are: * If you are a smoker, now is the time to stop smoking cigarettes * If you are diabetic, improve the control of your blood sugars * Avoid excessive amounts of alcohol * Control high blood pressure * Lose weight if you are overweight * Be sure to lead an active lifestyle * Eat a healthy diet low in salt, cholesterol and fat You should know about other risk factors for stroke that you are unable to control. These include: * Age 55 years or older * Male gender * Certain racial groups: , or / * Family History of Stroke, Mini stroke or Heart Attack * Sickle Cell Disease Follow Up: It is important for you to keep your follow up appointments with your medical provider. Who to Call and When: Medical Emergencies: Call 911 immediately if you experience any of the following warning signs and symptoms of Stroke: * Sudden numbness or weakness of the face, arm or leg, especially on one side of the body * Sudden confusion, trouble speaking or understanding * Sudden trouble seeing in one or both eyes * Sudden trouble walking, dizziness, loss of balance or coordination * Sudden severe headache with no cause Do not delay calling 911 if you experience any warning signs or symptoms of a stroke. Delay in seeking medical attention may affect what treatments can be given to you. . Prescriptions: New aspirin [Ecotrin Low Strength] 81 mg Tablet,Delayed Release (/Ec) 81 mg PO QAM Qty: 30 RF: 0 Continue venlafaxine 75 mg capsule,extended release 24hr 75 mg PO DAILY RF: 0 pravastatin 40 mg tablet 40 mg PO HS RF: 0 venlafaxine 150 mg capsule,extended release 24hr 150 mg PO DAILY RF: 0 montelukast 10 mg tablet 10 mg PO HS RF: 0 losartan-hydrochlorothiazide 50-12.5 mg tablet 1 tab PO QAM RF: 0 metformin 500 mg tablet extended release 24 hr 500 mg PO BID RF: 0 multivitamin Tablet,Chewable 2 tab PO QAM RF: 0 coQ10 (ubiquinol) 200 mg Capsule 200 mg PO QAM RF: 0 Ddr Prime 1 cap PO QAM RF: 0 On Guard 1 cap PO QAM RF: 0 Visit Report Forms: [facility] [employer] Portal Stand-Alone Forms: Medications to Prevent Stroke, [facility] [employer] Krames/Other Patient Handouts: Aspirin Oral tablet, Stroke Brain Body Effects, Stroke Hours Follow, Stroke Heart Disease, Stroke Sx, TIA, Stroke Taking Meds, Eat Healthy, Attack Transient Ischemic Dc Discharge Orders: Discharge Order (Routine); Ordered 09/17/18 Ordered By: Kermit Hidalgo Admission Data Admit Date/Time: 09/16/18 23:19 Attending Provider: Kermit Hidalgo Admit Provider: Trevor Anaya Primary Care Provider: Michelle Ojeda Other Providers: Anuj Carmona ; Kermit Hidalgo Service: Telemetry
--- NOTE | 2018-09-17 20:35 | Pharmacy Report ---
Pharmacist Stroke Counseling - Date of Service September 17, 2018 - Scope: Pharmacy has been consulted to provide medication discharge counseling for this patient admitted with ischemic stroke as per the Pharmacist Discharge Counseling for Stroke Patients Protocol. - Medications on Discharge: Home Medications Medication Instructions Recorded Confirmed Ddr Prime 1 cap PO QAM 09/16/18 On Guard 1 cap PO QAM 09/16/18 coQ10 (ubiquinol) 200 mg PO QAM 09/16/18 09/16/18 losartan-hydrochlorothiazide 1 tab PO QAM 09/16/18 09/16/18 metformin 500 mg PO BID 09/16/18 09/16/18 montelukast 10 mg PO HS 09/16/18 09/16/18 multivitamin 2 tab PO QAM 09/16/18 09/16/18 pravastatin 40 mg PO HS 09/16/18 09/16/18 venlafaxine 75 mg PO DAILY 09/16/18 09/16/18 venlafaxine 150 mg PO DAILY 09/16/18 09/16/18 New Rx's Medication Instructions Recorded aspirin [Ecotrin Low Strength] 81 mg PO QAM #30 tab 09/17/18 - Action: The above medications, specifically ones for stroke treatment/prophylaxis, have been reviewed in detail with the patient and her prior to discharge. This includes indication, common adverse reactions, drug interactions, and medication administration. Medication counseling has been employed using the teach-back method to ensure understanding. - Outcome: The patient and her have demonstrated understanding of the medications. Please note, they are aware that the pharmacist will call them within 72 hours post-discharge to confirm that the appropriate medications are being taken and answer any further medication related questions the patient might have at that time. Contact information Individual to be contacted: self Relationship to patient (if applicable): N/A Phone number: [phone] Best time to call: between [phone] and [phone] Additional comments: spoke with patient about baby aspirin. Reviewed that she should discuss a high intensity statin with her PCP. She related she had myalgias with simvastatin. She is going to restart ACV since this reduced her cholesterol before. Thank you for allowing pharmacy to be involved in the care of this patient. Please call [phone] or [phone] with any additional questions
[2018-09-21 06:41] LABS: Anti Cardiolipin Ab IgG <14 GPL (< = 14); Anti Cardiolipin Ab IgM <12 MPL (< = 12); Beta-2-Microglobulin 2.78 MG/L (0.00-2.51); Lupus Anticoagulant Negative (Negative)
[2018-09-21 22:30] LABS: 18KDIGG Band NONREACTIVE (NONREACTIVE); 23KDIGG Band NONREACTIVE (NONREACTIVE); 23KDIGM Band NONREACTIVE (NONREACTIVE); 28KDIGG Band NONREACTIVE (NONREACTIVE); 30KDIGG Band NONREACTIVE (NONREACTIVE); 39KDIGG Band NONREACTIVE (NONREACTIVE); 39KDIGM Band NONREACTIVE (NONREACTIVE); 41KDIGG Band REACTIVE (NONREACTIVE); 41KDIGM Band NONREACTIVE (NONREACTIVE); 45KDIGG Band NONREACTIVE (NONREACTIVE); 58KDIGG Band NONREACTIVE (NONREACTIVE); 66KDIGG Band NONREACTIVE (NONREACTIVE); 93KDIGG Band NONREACTIVE (NONREACTIVE); Lyme Antibodies, WB IgG NEGATIVE (NEGATIVE); Lyme Antibodies, WB IgM NEGATIVE (NEGATIVE)
== END 2018-09-17 17:32 | disposition home or self-care (01) | DRG 66 ==
LOC: ED 16:57 → SUATTDRO 23:19 → 2S 23:19

== ENCOUNTER 2022-07-09 17:47 | Observation (INO) ==
[2022-07-09 19:06] LABS: Hematocrit (blood only) 42.1 % (34.1-44.9); Hemoglobin 14.1 g/dl (12.0-16.0); Mean Corpuscular Hemoglobin 30.5 pg (25.0-34.0); Mean Corpuscular Hgb Conc 33.5 g/dL (32.0-36.0); Mean Corpuscular Volume 90.9 fL (80.0-100.0); Mean Platelet Volume 9.5 fL (9.4-12.3); Platelet Count 321 K/uL (130-400); RDW Coefficient of Variation 12.8 % (11.5-14.5); Red Blood Count 4.63 M/uL (3.93-5.22); White Blood Count 8.91 K/ul (4.8-10.8)
[2022-07-09 19:25] LABS: Partial Thromboplastin Ratio 0.9; Partial Thromboplastin Time 24.8 Seconds (21.0-31.0); Prothrombin Time 10.9 Seconds (9.0-12.0)
[2022-07-09 19:31] LABS: Alanine Aminotransferase 19 U/L (7-52); Albumin Globulin Ratio 1.4 (0.9-2); Albumin Level 4.4 gm/dl (3.4-5.0); Alkaline Phosphatase 87 U/L (34-104); Anion Gap 9 (3-11); Aspartate Aminotransferase 16 U/L (13-39); Bilirubin,Total 0.4 mg/dl (0.2-1.0); Blood Urea Nitrogen 20 mg/dl (6-23); Calcium 10.2 mg/dl (8.5-10.1); Carbon Dioxide 27 mmol/L (21-32); Chloride 103 mmol/L (98-107); Est GFR (Non-African American) 69.9 ml/min; Globulin 3.2 gm/dl (2.5-4.0); Glucose 130 mg/dl (70-99(Fasting)); Magnesium 1.7 mg/dl (1.7-2.4); Potassium 3.9 mmol/L (3.5-5.1); Sodium 139 mmol/L (136-145); Total Protein 7.6 gm/dl (6.0-8.3)
[2022-07-09] MEDS ORDERED: SODIUM CHLORIDE 0.9% 1000ML 1,000 ML IV ONE (21:09)
[2022-07-09] MEDS ORDERED: OPTIRAY 320 500ml IV ONE (21:35)
--- NOTE | 2022-07-09 22:22 | Emergency Department Note ---
Impression & Plan CVA (cerebral vascular accident), Hypertension, Confusion ED Provider Note NAME: ROJAS WATERS AGE: 66 SEX: F ARRIVES VIA: Walk-In INFORMANT: Patient, ED PROVIDER(S): Raymond Vazquez MD CHIEF COMPLAINT: Confusion PLAN: Disposition: Admit MEDICAL DECISION MAKING: The patient is a pleasant 66-year-old woman with a past medical history of CVA who presents emerged department company by her and daughter for evaluation of confusion and slow thought process that is been ongoing since Thursday. She reports she "thinks she had a stroke on Thursday". She reports her foggy thinking was worse on Thursday. Her reports that she initially commented that she just felt "tired". However is noted that her sisters had talked her on the phone yesterday and were concerned that something was going on. Her daughter was able to visit with her today and further noticed that she was not acting normally and she agreed to come to the emergency department today. The patient reports that she stopped taking her aspirin sometime ago for no particular reason. She previously had a lacunar infarct in 2019. Otherwise she denies any recent illness including fevers, chills, cough, congestion, GI or symptoms. Given the patient's symptoms which are significantly different than her baseline they do agree with plan for admission for further stroke evaluation even if her CT/CTA is negative. Given symptoms have been ongoing since Thursday no indication for stroke alert. On arrival patient is no acute distress, afebrile, blood pressure 190/100s and otherwise stable vital signs. She has no focal extremity weakness. She has no overt word finding difficulty but does have slow mental processing that is noted. EKG without overt acute ischemia. WBC, H/H and platelets within normal limits. Chemistry without metabolic acidosis. Electrolytes and LFTs without significant abnormality. High- sensitivity troponin 3.8, within normal limits. COVID-19 RNA, CHIO test was negative. CT of the head and CT of the head neck were performed. Per preliminary stat read report new ischemic area is seen within the anterior left internal capsule consistent with ischemia. No severe narrowing or occlusion of large vessels are noted. Case was discussed with Dr. Choudhury, [facility] hospitalist, who will evaluate the patient for admission. Triage Nursing notes reviewed and agree them. Prior medical records reviewed Vital Signs: reviewed and remarkable for hypertension. Differential diagnosis: Infection, dehydration, metabolic abnormality, hypo/hyperglycemia, electrolyte disturbance, anemia, hypoxia, cardiac sources, intracerebral event, toxicologic, neurologic, as well as other pathologies. ER treatment provided: See below. Diagnostics interpreted by me: ECG: Sinus rhythm, 78 bpm, no ectopy, nonspecific ST and T wave abnormality, no overt ST elevation or depression, QTC 440, QRS 78. Cardiac Monitoring: An order for continuous cardiac monitoring was placed and demonstrated Sinus rhythm, 78 bpm, no ectopy. Laboratory studies: See below Imaging studies: See below Consultation(s): Case was discussed with Dr. Choudhury, [facility] hospitalist, who will evaluate the patient for admission. HPI: The patient is a pleasant 66-year-old woman with a past medical history of CVA who presents emerged department company by her and daughter for evaluation of confusion and slow thought process that is been ongoing since Thursday. She reports she "thinks she had a stroke on Thursday". She reports her foggy thinking was worse on Thursday. Her reports that she initially commented that she just felt "tired". However is noted that her sisters had talked her on the phone yesterday and were concerned that something was going on. Her daughter was able to visit with her today and further noticed that she was not acting normally and she agreed to come to the emergency department today. The patient reports that she stopped taking her aspirin sometime ago for no particular reason. She previously had a lacunar infarct in 2019. Otherwise she denies any recent illness including fevers, chills, cough, congestion, GI or symptoms. Given the patient's symptoms which are significantly different than her baseline they do agree with plan for admission for further stroke evaluation even if her CT/CTA is negative. Given symptoms have been ongoing sin ce Thursday no indication for stroke alert. ROS: See above HPI for pertinent positives & negatives. A total of 10 systems reviewed and were otherwise negative. VITALS:See Below PHYSICAL EXAMINATION: GENERAL: Awake, alert, well-appearing, in no distress HENT: Normocephalic, atraumatic. Oropharynx with dry mucous membranes and otherwise unremarkable. EYES: Normal conjunctiva. Sclera non-icteric. EOMI. No nystamgus. PEARRL. NECK: Supple. No nuchal rigidity. FROM. No JVD. RESPIRATORY: Clear to auscultation. CARDIAC: Regular rate, normal rhythm. Extremities warm and well perfused. Pulses equal. ABDOMEN: Soft, non-distended. No tenderness to palpation. No rebound or guarding. No masses. RECTAL: Deferred. MUSCULOSKELETAL: Chest examination reveals no tenderness. The back is symmetrical on inspection without obvious abnormality. There is no CVA tenderness to palpation. No joint edema. LOWER EXTREMITIES: Calves are equal size bilaterally and non-tender. No edema. No discoloration. NEURO: No overt word finding difficulty but does have slow mental processing that is noted. 5/5 strength and SILT x 4 extremities. Cerebellar function intact including [id number], alternating palms, [id number]. SKIN: No rash or jaundice noted. Raymond Vazquez MD Past Med/Surg History Medical History Anxiety and depression Asthma Fatty liver Fibromyalgia GERD (gastroesophageal reflux disease) Hiatal hernia Hyperlipidemia statin intolerance Hypertension Ischemic stroke September 2018--only deficit is if she "is tired sometimes my right foot drags"--follows with PCP Metabolic syndrome Migraine headache Mixed irritable bowel syndrome Myalgic encephalomyelitis chronic fatigue syndrome Obesity DIETER (obstructive sleep apnea) uses CPAP Peripheral neuropathy Subclinical hypothyroidism Type 2 diabetes mellitus Urinary incontinence Surgical History History of colonoscopy last 2018 @ [facility] History of esophagogastroduodenoscopy (EGD) History of hysterectomy BSO History of laparoscopy History of oral surgery History of tooth extraction Status post wisdom tooth extraction Family History Mother Diabetes CHF (congestive heart failure) Anxiety Depression Cardiac disorder Migraine headache Neuropathy Hypertension Grandmother Diabetes CHF (congestive heart failure) Brother Migraine headache Sister Diabetes Thyroid trouble Anxiety Hypertension Tinnitus Grandfather Lung cancer Unknown Multiple sclerosis Uncle Colon cancer Aunt Myocardial infarction Father Cardiac disorder Other No family history of adverse response to anesthesia Denies family history of Ovarian cancer Prostate cancer Breast cancer Social History Smoking Status: Never smoker Second Hand Exposure: Yes (father smoke when she was a child); Hx Alcohol Use: No Hx Substance Use: No Preferred Language: Kyrgyz Communication Ability: Effective Visual Impairment: No Limitations Hearing Ability: Normal Gas Welder Required: No Beliefs That Will Affect Care: None marital status: Current Living Situation: Spouse current occupational status: employed Feels Safe at Home: Yes Childhood Exposure to Second-Hand Smoke: Yes Diet Comment: Keto, balanced diet caffeine: Yes (Rarely) Dental Care, Regularly: Yes Physical Activity Frequency: 3-4 Times per Week Physical Activity Frequency Comment: Walking Seatbelt Use: always Sunscreen Use: Yes Assistive Devices: CPAP and Glasses Allergies Allergies Allergy/AdvReac Type Severity Reaction Status Date / Time amoxicillin Allergy Intermediate Hives and Verified 07/09/22 21:56 swelling atorvastatin [From Lipitor] Allergy Intermediate Hives Verified 07/09/22 21:56 doxycycline Allergy Intermediate hives Verified 07/09/22 21:56 green tea Allergy Intermediate "lungs get Verified 07/09/22 21:56 sore and I have a hard time breathing" Penicillins Allergy Intermediate Hives Verified 07/09/22 21:56 pravastatin Allergy Intermediate Hives Verified 07/09/22 21:56 tree and shrub pollen Allergy Intermediate runny Verified 07/09/22 21:56 nose/sinus issues losartan AdvReac Intermediate nasal Verified 07/09/22 21:56 congestion rosuvastatin [From Crestor] AdvReac Mild Headache Verified 07/09/22 21:56 Home Meds Home Medications Medication Instructions Recorded Confirmed lactobacillus combination no.4 3 3,000 mmu cells PO Q OTHER DAY 06/26/20 07/09/22 billion cell capsule (Probiotic) DDR Prime 1 tab PO QAM 08/20/21 07/09/22 onguard 1 tab PO QAM 08/20/21 07/09/22 melatonin 10 mg tablet 10 mg PO HS 11/26/21 07/09/22 cholecalciferol (vitamin D3) 50 4,000 unit PO HS 05/22/22 07/09/22 mcg (2,000 unit) tablet (Vitamin D3) latanoprost 0.005 % eye drops 1 drp ophthalmic (eye) HS 05/22/22 07/09/22 CPAP Machine 05/30/22 06/13/22 lorazepam 0.5 mg tablet 0.5 mg PO DIRECTED PRN PRIOR TO 07/09/22 07/09/22 DENTAL APPT. metformin 500 mg tablet,extended 500 mg PO BID 07/09/22 07/09/22 release 24 hr multivitamin 1 tab PO DAILY 07/09/22 07/09/22 Previous Rx's Medication Instructions Recorded albuterol sulfate 90 mcg/actuation 90 mcg inhalation Q6H PRN SHORT OF 11/05/21 breath activated powder inhaler BREATH #1 ea metoprolol succinate 50 mg 50 mg PO DAILY #90 tabs 06/13/22 tablet,extended release 24 hr venlafaxine 50 mg tablet 50 mg PO .COMPLEX #270 tabs 06/13/22 Results & Data (ED) Vital Signs Vital Signs - 24 hr 07/09/22 18:02 07/09/22 20:20 07/09/22 20:20 Temperature 36.6 C Temperature Source Temporal Artery Scan Pulse Rate 86 Pulse Rate [Finger] 85 Pulse Rhythm [Finger] Regular Pulse Strength [Finger] Normal Respiratory Rate 18 18 Respiratory Effort / Characteristics Non-Labored Spontaneous Respiratory Depth Normal Respiratory Pattern Regular Blood Pressure 190/103 H Blood Pressure [Right Arm] 194/92 H Blood Pressure Mean 132 Blood Pressure Mean [Right Arm] 126 Blood Pressure Position Sitting Blood Pressure Position [Right Arm] Lying Pulse Oximetry 96 97 96 Oxygen Delivery Method Room Air Room Air Room Air Sepsis Recent Fever Within 48 Hours No Sepsis New/Unexplained Change in Mental Status Yes Sepsis Action Taken by Nursing No Action Required 07/09/22 20:20 07/09/22 22:00 Temperature Temperature Source Pulse Rate Pulse Rate [Finger] 75 Pulse Rhythm [Finger] Regular Pulse Strength [Finger] Normal Respiratory Rate 16 Respiratory Effort / Characteristics Non-Labored Respiratory Depth Normal Respiratory Pattern Blood Pressure Blood Pressure [Right Arm] 200/96 H Blood Pressure Mean Blood Pressure Mean [Right Arm] 130 Blood Pressure Position Blood Pressure Position [Right Arm] Pulse Oximetry 98 97 Oxygen Delivery Method Room Air Room Air Sepsis Recent Fever Within 48 Hours Sepsis New/Unexplained Change in Mental Status Sepsis Action Taken by Nursing Laboratory Data Attestation: I reviewed the patient's lab results. Result diagrams: 07/09/22 18:50 07/09/22 18:50 Lab Results 07/09/22 07/09/22 07/09/22 Range/Units 18:50 18:50 18:50 WBC 8.91 (4.8-10.8) K/ul RBC 4.63 (3.93-5.22) M/uL Hgb 14.1 (12.0-16.0) g/dl Hct 42.1 (34.1-44.9) % MCV 90.9 (80.0-100.0) fL MCH 30.5 (25.0-34.0) pg MCHC 33.5 (32.0-36.0) g/dL RDW Std Deviation 42.0 (36.4-46.3) fL RDW Coeff of Homa 12.8 (11.5-14.5) % Plt Count 321 (130-400) K/uL MPV 9.5 (9.4-12.3) fL PT 10.9 (9.0-12.0) Seconds INR 1.0 (0.9-1.1) APTT 24.8 (21.0-31.0) Seconds PTT Ratio 0.9 Sodium 139 (136-145) mmol/L Potassium 3.9 (3.5-5.1) mmol/L Chloride 103 (98-107) mmol/L Carbon Dioxide 27 (21-32) mmol/L Anion Gap 9 (3-11) BUN 20 (6-23) mg/dl Creatinine 0.87 (0.6-1.2) mg/dl Est Cr Clr Drug Dosing Not Reportable Est GFR ( Amer) 81.0 ml/min Est GFR (Non-Af Amer) 69.9 ml/min BUN/Creatinine Ratio 23.0 H (10-20) Glucose 130 H (70-99(Fasting)) mg/dl POC Glucose (70-99) mg/dl Calcium 10.2 H (8.5-10.1) mg/dl Magnesium 1.7 (1.7-2.4) mg/dl Total Bilirubin 0.4 (0.2-1.0) mg/dl AST 16 (13-39) U/L ALT 19 (7-52) U/L Alkaline Phosphatase 87 (34-104) U/L Troponin I High Sens (0-14) pg/ml Total Protein 7.6 (6.0-8.3) gm/dl Albumin 4.4 (3.4-5.0) gm/dl Globulin 3.2 (2.5-4.0) gm/dl Albumin/Globulin Ratio 1.4 (0.9-2) Urine Color Urine Appearance (Clear) Urine pH (4.5-7.5) Ur Specific Ovid (1.000-1.030) Urine Protein (Negative) Urine Glucose (UA) (Negative) Urine Ketones (Negative) Urine Blood (Negative) Urine Nitrite (Negative) Urine Bilirubin (Negative) Urine Urobilinogen (Negative) Ur Leukocyte Esterase (Negative) Urine WBC (Auto) (0-5) /hpf Urine RBC (Auto) (0-4) /hpf U Hyaline Cast (Auto) (0-5) /lpf U Epithel Cells (Auto) (0-5) /lpf Urine Bacteria (Auto) (Negative) SARS-CoV-2, RNA, NAAT (NEGATIVE) 07/09/22 07/09/22 07/09/22 Range/Units 18:50 21:18 22:43 WBC (4.8-10.8) K/ul RBC (3.93-5.22) M/uL Hgb (12.0-16.0) g/dl Hct (34.1-44.9) % MCV (80.0-100.0) fL MCH (25.0-34.0) pg MCHC (32.0-36.0) g/dL RDW Std Deviation (36.4-46.3) fL RDW Coeff of Homa (11.5-14.5) % Plt Count (130-400) K/uL MPV (9.4-12.3) fL PT (9.0-12.0) Seconds INR (0.9-1.1) APTT (21.0-31.0) Seconds PTT Ratio Sodium (136-145) mmol/L Potassium (3.5-5.1) mmol/L Chloride (98-107) mmol/L Carbon Dioxide (21-32) mmol/L Anion Gap (3-11) BUN (6-23) mg/dl Creatinine (0.6-1.2) mg/dl Est Cr Clr Drug Dosing Est GFR ( Amer) ml/min Est GFR (Non-Af Amer) ml/min BUN/Creatinine Ratio (10-20) Glucose (70-99(Fasting)) mg/dl POC Glucose (70-99) mg/dl Calcium (8.5-10.1) mg/dl Magnesium (1.7-2.4) mg/dl Total Bilirubin (0.2-1.0) mg/dl AST (13-39) U/L ALT (7-52) U/L Alkaline Phosphatase (34-104) U/L Troponin I High Sens 3.8 (0-14) pg/ml Total Protein (6.0-8.3) gm/dl Albumin (3.4-5.0) gm/dl Globulin (2.5-4.0) gm/dl Albumin/Globulin Ratio (0.9-2) Urine Color Yellow Urine Appearance Clear (Clear) Urine pH 5.5 (4.5-7.5) Ur Specific Ovid > 1.045 H (1.000-1.030) Urine Protein Negative (Negative) Urine Glucose (UA) Negative (Negative) Urine Ketones Negative (Negative) Urine Blood Negative (Negative) Urine Nitrite Negative (Negative) Urine Bilirubin Negative (Negative) Urine Urobilinogen Negative (Negative) Ur Leukocyte Esterase 1+ H (Negative) Urine WBC (Auto) 10-30 H (0-5) /hpf Urine RBC (Auto) 0-4 (0-4) /hpf U Hyaline Cast (Auto) 1-5 (0-5) /lpf U Epithel Cells (Auto) 10-20 H (0-5) /lpf Urine Bacteria (Auto) Negative (Negative) SARS-CoV-2, RNA, NAAT NEGATIVE (NEGATIVE) 07/09/22 Range/Units 23:53 WBC (4.8-10.8) K/ul RBC (3.93-5.22) M/uL Hgb (12.0-16.0) g/dl Hct (34.1-44.9) % MCV (80.0-100.0) fL MCH (25.0-34.0) pg MCHC (32.0-36.0) g/dL RDW Std Deviation (36.4-46.3) fL RDW Coeff of Homa (11.5-14.5) % Plt Count (130-400) K/uL MPV (9.4-12.3) fL PT (9.0-12.0) Seconds INR (0.9-1.1) APTT (21.0-31.0) Seconds PTT Ratio Sodium (136-145) mmol/L Potassium (3.5-5.1) mmol/L Chloride (98-107) mmol/L Carbon Dioxide (21-32) mmol/L Anion Gap (3-11) BUN (6-23) mg/dl Creatinine (0.6-1.2) mg/dl Est Cr Clr Drug Dosing Est GFR ( Amer) ml/min Est GFR (Non-Af Amer) ml/min BUN/Creatinine Ratio (10-20) Glucose (70-99(Fasting)) mg/dl POC Glucose 117 H (70-99) mg/dl Calcium (8.5-10.1) mg/dl Magnesium (1.7-2.4) mg/dl Total Bilirubin (0.2-1.0) mg/dl AST (13-39) U/L ALT (7-52) U/L Alkaline Phosphatase (34-104) U/L Troponin I High Sens (0-14) pg/ml Total Protein (6.0-8.3) gm/dl Albumin (3.4-5.0) gm/dl Globulin (2.5-4.0) gm/dl Albumin/Globulin Ratio (0.9-2) Urine Color Urine Appearance (Clear) Urine pH (4.5-7.5) Ur Specific Ovid (1.000-1.030) Urine Protein (Negative) Urine Glucose (UA) (Negative) Urine Ketones (Negative) Urine Blood (Negative) Urine Nitrite (Negative) Urine Bilirubin (Negative) Urine Urobilinogen (Negative) Ur Leukocyte Esterase (Negative) Urine WBC (Auto) (0-5) /hpf Urine RBC (Auto) (0-4) /hpf U Hyaline Cast (Auto) (0-5) /lpf U Epithel Cells (Auto) (0-5) /lpf Urine Bacteria (Auto) (Negative) SARS-CoV-2, RNA, NAAT (NEGATIVE) Administered Medications Discontinued Medications Sodium Chloride (Nss 1000ml) 1,000 mls @ 999 mls/hr IV .Q1H1M ONE Stop: 07/09/22 22:09 Last Infusion: 07/09/22 22:53 Dose: 0 mls/hr Documented By: Admin: 07/09/22 21:48 Dose: 999 mls/hr Documented By: TOY Ioversol (Optiray 320 500ml) 111 ml IV ONCE ONE Stop: 07/09/22 21:36 Last Admin: 07/09/22 21:36 Dose: 111 ml Documented By: BROOKE Imaging Data Radiologist's Impression: Preliminary Findings Only See Final Report For Complete Findings CT HEAD: There is a new area of low attenuation in the anterior left capsule concerning for acute ischemic injury. Mild nonspecific white matter changes. Comparison made to prior brain MRI from July 16, 2021. Radiologist: Marielos Alfredo MD Study ready at 21:45 and initial results transmitted at 22:10 Preliminary Findings Only See Final Report For Complete Findings CTA HEAD: Negative CT angiogram of the head. Comparison made to prior MRA of the brain from September 16, 2018. Radiologist: Marielos Alfredo MD Study ready at 21:45 and initial results transmitted at 22:18 Preliminary Findings Only See Final Report For Complete Findings CTA NECK: Negative CT angiogram of the neck. Comparison made to prior MR angiogram of the neck from September 17, 2018. Radiologist: Marielos Alfredo MD Study ready at 21:46 and initial results transmitted at 22:22 Discharge Plan Visit Data Chief Complaint: Confusion Stated Complaint: CONFUSED, DIZZY ED Provider: Raymond Vazquez Discharge Problem: CVA (cerebral vascular accident), Hypertension, Confusion Patient Disposition: Admitted As Inpatient Forms Stand Alone Forms: My [facility] Prescriptions Prescriptions: No Action (DME) CPAP Machine Misc See Rx Instructions .Route Rx Instructions: As directed venlafaxine 50 mg tablet 50 mg PO .COMPLEX Qty: 270 3RF Rx Instructions: 50 mg PO two tabs in the am, one tab in the pm; metoprolol succinate 50 mg tablet extended release 24 hr 50 mg PO DAILY Qty: 90 3RF melatonin 10 mg tablet 10 mg PO HS onguard 1 tab PO QAM DDR Prime 1 tab PO QAM albuterol sulfate 90 mcg/actuation aerosol powdr breath activated 90 mcg INHALATION Q6H PRN (Reason: SHORT OF BREATH) Qty: 1 0RF Probiotic 3 billion cell capsule 3,000 mmu cells PO Q OTHER DAY Label Comments: takes at hs Rx Instructions: 3,000 mmu cells PO every other day; latanoprost 0.005 % Drops 1 drp OPHTHALMIC (EYE) HS cholecalciferol (vitamin D3) [Vitamin D3] 50 mcg (2,000 unit) Tablet 4,000 unit PO HS multivitamin Tablet 1 tab PO DAILY lorazepam 0.5 mg tablet 0.5 mg PO DIRECTED PRN (Reason: PRIOR TO DENTAL APPT.) Rx Instructions: Take one tablet 1 hour prior to medical or dental procedure. metformin 500 mg tablet extended release 24 hr 500 mg PO BID Referrals Referrals: Michelle Ojeda MD [Primary Care Provider] -
[2022-07-09 22:55] LABS: Appearance Urine Clear (Clear); Bacteria Urine Automated Negative (Negative); Bilirubin Urine Negative (Negative); Blood Urine Negative (Negative); Color Urine Yellow; Glucose Urine UA Negative (Negative); Ketones Urine Negative (Negative); Leukocyte Esterase Urine 1+ (Negative); Nitrite Urine Negative (Negative); Protein Urine Negative (Negative); RBC Urine Automated 0-4 /hpf (0-4); Specific Gravity Urine > 1.045 (1.000-1.030); Urobilinogen Urine Negative (Negative); pH Urine 5.5 (4.5-7.5)
[2022-07-09] MEDS ORDERED: GLUCAGON FOR INJ 1 MG VIAL SQ PRN (23:33)
[2022-07-09] MEDS ORDERED: CARBOHYDRATES FOR HYPOGLYCEMIA PO PRN (23:33)
[2022-07-09] MEDS ORDERED: GLUCOSE 10 TAB/TUBE PO PRN (23:33)
[2022-07-09] MEDS ORDERED: GLUCOSE 40% GEL 15 GM TUBE PO PRN (23:33)
[2022-07-09] MEDS ORDERED: DEXTROSE 50% 50 ML SYRINGE IV PRN (23:33)
--- NOTE | 2022-07-09 23:34 | History & Physical Report ---
Date of Service July 09, 2022 Assessment & Plan (1) CVA (cerebral vascular accident): Plan: -CT of the head and CT of the head neck were performed. Per preliminary stat read report new ischemic area is seen within the anterior left internal capsule consistent with ischemia. pending full report. -Will order MRI brain w/o, ECHO w/ bubble, speech therapy, hemoglobin A1c, lipid panel -PT/OT ordered -trend CBC and BMP in AM labs. -will keep on tele -Start aspirin 81mg QD and clopidogrel 75mg QD. (2) Type 2 diabetes mellitus: Plan: -Patient's home regimen held on admission -Continue BSG checks, sliding-scale insulin, hypoglycemic protocol (3) Hyperlipidemia: Plan: -Not any any meds due to statin allergies. -Lipid panel pending. (4) DIETER (obstructive sleep apnea): Plan: -Continue at home CPAP while on admission. (5) Hypertension: Plan: -Does not seem to be well controlled. -Pt reported having CHENEY's for the past couple of months that got better with increase in her metoprolol. -Does not check BP at home. -Will continue at home metoprolol. Will consider increasing or adding on new medication during admission. -F/u with PCP to get better control of her BP. (6) Anxiety and depression: Plan: -Continue at home Effexor. History of Present Illness Chief Complaint: Word finding difficulties since Thursday Primary Care Provider: Michelle Ojeda MD Patient is a 66 y/o woman with a past medical history of CVA (lacunar infarct- 2019), HTN, DM2 who presents to the ED with confusion, slow thought process, and trouble with word finding that started on Thursday that has progressively gotten better. Her daughter was able to visit with her today and further noticed that she was not acting normally. The patient reports that she stopped taking her aspirin sometime ago on her own and is allergic to most statins. She denies any recent illness including fevers, chills, cough, congestion, GI or symptoms. In the ED: no acute distress, afebrile, blood pressure 190/100s and otherwise stable vital signs. She has no focal extremity weakness. She has no overt word finding difficulty but does have slow mental processing that is noted. WBC, H/H and platelets within normal limits. Chemistry without metabolic acidosis. Electrolytes and LFTs without significant abnormality. High-sensitivity troponin 3.8, within normal limits. COVID-19 RNA, CHIO test was negative. CT of the head and CT of the head neck were performed. Per preliminary stat read report new ischemic area is seen within the anterior left internal capsule consistent with ischemia. Allergies Allergy/AdvReac Type Severity Reaction Status Date / Time amoxicillin Allergy Intermediate Hives and Verified 07/09/22 21:56 swelling atorvastatin [From Lipitor] Allergy Intermediate Hives Verified 07/09/22 21:56 doxycycline Allergy Intermediate hives Verified 07/09/22 21:56 green tea Allergy Intermediate "lungs get Verified 07/09/22 21:56 sore and I have a hard time breathing" Penicillins Allergy Intermediate Hives Verified 07/09/22 21:56 pravastatin Allergy Intermediate Hives Verified 07/09/22 21:56 tree and shrub pollen Allergy Intermediate runny Verified 07/09/22 21:56 nose/sinus issues losartan AdvReac Intermediate nasal Verified 07/09/22 21:56 congestion rosuvastatin [From Crestor] AdvReac Mild Headache Verified 07/09/22 21:56 Home Medications Medication Instructions Recorded Confirmed Type lactobacillus combination no.4 3 3,000 mmu cells PO Q OTHER DAY 06/26/20 07/09/22 History billion cell capsule (Probiotic) DDR Prime 1 tab PO QAM 08/20/21 07/09/22 History onguard 1 tab PO QAM 08/20/21 07/09/22 History albuterol sulfate 90 mcg/actuation 90 mcg inhalation Q6H PRN SHORT OF 11/05/21 07/09/22 Rx breath activated powder inhaler BREATH #1 ea melatonin 10 mg tablet 10 mg PO HS 11/26/21 07/09/22 History cholecalciferol (vitamin D3) 50 4,000 unit PO HS 05/22/22 07/09/22 History mcg (2,000 unit) tablet (Vitamin D3) latanoprost 0.005 % eye drops 1 drp ophthalmic (eye) HS 05/22/22 07/09/22 History CPAP Machine 05/30/22 06/13/22 History venlafaxine 50 mg tablet 50 mg PO .COMPLEX #270 tabs 06/13/22 07/09/22 Rx lorazepam 0.5 mg tablet 0.5 mg PO DIRECTED PRN PRIOR TO 07/09/22 07/09/22 History DENTAL APPT. multivitamin 1 tab PO DAILY 07/09/22 07/09/22 History aspirin 81 mg tablet,delayed 81 mg PO QAM #90 tabs 07/10/22 Rx release clopidogrel 75 mg tablet 75 mg PO QAM #20 tabs 07/10/22 Rx ezetimibe 10 mg tablet (Zetia) 10 mg PO HS #30 tabs 07/10/22 Rx metformin 500 mg tablet,extended 500 mg PO BID #60 tabs 07/10/22 07/09/22 Rx release 24 hr metoprolol succinate 50 mg 75 mg PO DAILY #45 tabs 07/10/22 Rx tablet,extended release 24 hr Past Med/Surg History Medical History Anxiety and depression Asthma Fatty liver Fibromyalgia GERD (gastroesophageal reflux disease) Hiatal hernia Hyperlipidemia statin intolerance Hypertension Ischemic stroke September 2018--only deficit is if she "is tired sometimes my right foot drags"--follows with PCP Metabolic syndrome Migraine headache Mixed irritable bowel syndrome Myalgic encephalomyelitis chronic fatigue syndrome Obesity DIETER (obstructive sleep apnea) uses CPAP Peripheral neuropathy Subclinical hypothyroidism Type 2 diabetes mellitus Urinary incontinence Surgical History History of colonoscopy last 2018 @ [facility] History of esophagogastroduodenoscopy (EGD) History of hysterectomy BSO History of laparoscopy History of oral surgery History of tooth extraction Status post wisdom tooth extraction Family History Mother Diabetes CHF (congestive heart failure) Anxiety Depression Cardiac disorder Migraine headache Neuropathy Hypertension Grandmother Diabetes CHF (congestive heart failure) Brother Migraine headache Sister Diabetes Thyroid trouble Anxiety Hypertension Tinnitus Grandfather Lung cancer Unknown Multiple sclerosis Uncle Colon cancer Aunt Myocardial infarction Father Cardiac disorder Other No family history of adverse response to anesthesia Denies family history of Ovarian cancer Prostate cancer Breast cancer Social History Smoking Status: Never smoker Second Hand Exposure: Yes (father smoke when she was a child); Hx Alcohol Use: No Hx Substance Use: No Preferred Language: Setswana Communication Ability: Effective Visual Impairment: No Limitations Hearing Ability: Normal Pheresis Nurse Required: No Beliefs That Will Affect Care: None marital status: Current Living Situation: Spouse current occupational status: employed Feels Safe at Home: Yes Childhood Exposure to Second-Hand Smoke: Yes Diet Comment: Keto, balanced diet caffeine: Yes (Rarely) Dental Care, Regularly: Yes Physical Activity Frequency: 3-4 Times per Week Physical Activity Frequency Comment: Walking Seatbelt Use: always Sunscreen Use: Yes Assistive Devices: None Review of Systems Review of Systems: Constitutional: denies fever, chills, fatigue HEENT: denies congestion, sore throat CV: denies chest pain, palpitations Resp: denies shortness of breath, cough GI: denies abdominal pain, nausea, vomiting, constipation, diarrhea : denies pain with urination, change in urinary frequency Neuro: denies new numbness, tingling, weakness Physical Exam Physical Exam: Constitutional: well-appearing, no acute distress HEENT: NCAT, no conjunctival injection CV: regular rhythm, no murmur appreciated, extremities well-perfused, no LE edema Resp: CTABL, no wheezes/rales/rhonchi appreciated, no increased work of breathing GI: soft, nondistended, nontender, BS normoactive MSK: no gross deformities appreciated Skin: warm, dry, no rash appreciated Neuro: alert, oriented, word finding difficulty, slow cognitive processing Results & Data Results & Data ([facility]) Vital Signs (Past 12 Hours) Vital Signs Temp Pulse Pulse Resp BP BP Pulse Ox 07/09/22 22:00 75 16 200/96 H 97 07/09/22 20:20 98 07/09/22 20:20 85 18 194/92 H 96 07/09/22 20:20 97 07/09/22 18:02 36.6 C 86 18 190/103 H 96 O2 Del Method 07/09/22 22:00 Room Air 07/09/22 20:20 Room Air 07/09/22 20:20 Room Air 07/09/22 20:20 Room Air 07/09/22 18:02 Room Air Supervising Physician Co-Signing Physician Notes patient seen and examined, chart reviewed, case discussed with Dr. Luke and I agree with the assessment and plan as above Resident Activity Tracking Resident Involvement: Resident Care Provided Care Provided: Adult Hospital Medicine
[2022-07-10] MEDS ORDERED: METOPROLOL SUCC 50MG EXT REL TAB PO STA (00:14)
[2022-07-10] MEDS ORDERED: PHARMACIST DISCHARGE MED REC CONSULT PRN (01:47)
[2022-07-10] MEDS ORDERED: ALBUTEROL HFA 8 GM INHALER INH PRN (01:47)
[2022-07-10] MEDS ORDERED: ACETAMINOPHEN 325 MG TAB PO PRN (01:57)
[2022-07-10] MEDS ORDERED: GADOBUTROL 65ML VIAL IV ONE (03:00)
[2022-07-10 06:37] LABS: BUN Creatinine Ratio 20.3 (10-20); Calcium 9.6 mg/dl (8.5-10.1); Chol HDL Ratio 5.4 (0-5); Creatinine Clr Calc Pharmacy 93.8 ml/min; Est GFR (African American) 105.9 ml/min; Est GFR (Non-African American) 91.4 ml/min; Potassium 3.6 mmol/L (3.5-5.1)
[2022-07-10 06:42] LABS: Basophils # (auto) 0.08 K/uL (0-0.2); Basophils % (auto) 0.8 %; Hematocrit (blood only) 40.9 % (34.1-44.9); Hemoglobin 13.5 g/dl (12.0-16.0); Immature Granulocytes # (auto) 0.02 K/uL (0.00-0.02); Immature Granulocytes % (auto) 0.2 %; Lymphocytes # (auto) 3.26 K/uL (1.2-3.4); Lymphocytes % (auto) 32.5 %; Mean Corpuscular Volume 90.9 fL (80.0-100.0); Mean Platelet Volume 10.6 fL (9.4-12.3); Monocytes # (auto) 0.81 K/uL (0.24-0.82); Monocytes % (auto) 8.1 %; Neutrophils # (auto) 5.57 K/uL (1.4-6.5); Neutrophils % (auto) 55.4 %; Platelet Count 165 K/uL (130-400); RDW Coefficient of Variation 12.5 % (11.5-14.5); RDW Standard Deviation 41.4 fL (36.4-46.3); White Blood Count 10.04 K/ul (4.8-10.8)
--- NOTE | 2022-07-10 06:57 | Magnetic Resonance Report ---
MRI OF THE BRAIN WITHOUT AND WITH IV CONTRAST CLINICAL HISTORY: Cerebrovascular accident. COMPARISON STUDY: MRI of the brain July 16, 2021. Head CT and CTA of the head July 09, 2022. TECHNIQUE: Utilizing a 1.5 Michelle magnet and dedicated coil, multiplanar, multiecho imaging of the br ain was performed pre and postcontrast administration. IV administration of 9.5 mL of Gadavist contr ast was uneventful. FINDINGS: There is a 1.6 x 0.8 cm focus of restricted diffusion within the left basal ganglia which c orresponds the finding on head CT. This represents an acute infarct. No mass effect. There is no evid ence for hemorrhagic conversion. Ventricle system is unremarkable. Basal cisterns are patent. There a re no extra-axial collections. Flow-voids for the major intracranial vessels are present. No intracra nial mass or pathologic enhancement. Scattered white matter T2 hyperintense foci are present. These f avor small vessel disease. Suspected old periventricular left frontal lobe infarct is also present. T erminal signal is normal. Orbits are unremarkable. There is no evidence for sinusitis. IMPRESSION: 1.6 x 0.8 cm acute infarct within left basal ganglia. No mass effect. No evidence for he morrhage. ACT 112: Negative or not required by law. Electronically signed by: Jv Ojeda M.D. 07/10/2022 6:54 AM
--- NOTE | 2022-07-10 07:22 | CT Scan Report ---
NECK CTA HISTORY: trouble speaking/thinking TECHNIQUE: Multiaxial CT images of the neck were performed following the intravenous administration o f contrast to evaluate the major cervical vessels. Maximum intensity projection images were also obta ined. All measurements were calculated based on NASCET criteria. A dose lowering technique was utili zed adhering to the principles of ALARA. COMPARISON STUDY: Neck MRA 09/17/2018. FINDINGS: The aortic arch and proximal great vessels are widely patent. There is no significant sten osis, occlusion, or dissection identified within the bilateral common carotid, internal carotid, or v ertebral arteries. IMPRESSION: No significant stenosis, occlusion, or dissection identified within the carotid or vertebral arteries . ACT 112: Negative or not required by law. Electronically signed by: Alex Champion M.D. 07/10/2022 7:19 AM
[2022-07-10 08:05] LABS: Estimated Average Glucose 137 mg/dl; Hemoglobin A1C 6.4 % (4.5-5.6)
--- NOTE | 2022-07-10 08:25 | CT Scan Report ---
CT OF THE HEAD WITHOUT CONTRAST CLINICAL HISTORY: trouble speaking/thinking COMPARISON STUDY: MRI of the brain July 16, 2021. Head CT September 16, 2018. TECHNIQUE: Helical axial images of the head were obtained without IV contrast. Automated exposure con trol was utilized for the study. A dose lowering technique was utilized adhering to the principles o f ALARA. FINDINGS: No acute intracranial hemorrhage, midline shift or mass effect is present. The ventricular system is unremarkable. A 1.5 cm hypodensity within the left basal ganglia is new since prior head CT . There is no mass effect. Additional hypodensities are unchanged. The basal cisterns are patent. No extra-axial collections are present. There are no findings to suggest acute dural sinus thrombosis or acute territorial infarct. No significant calvarial abnormalities are present. Visualized portions o f the sinuses and mastoid air cells are clear. IMPRESSION: 1. No acute intracranial hemorrhage or mass effect. 2. 1.5 cm hypodensity within the left basal ganglia new since prior exam. This favors an acute infarc t. ACT 112: Negative or not required by law. Electronically signed by: Jv Ojeda M.D. 07/10/2022 8:24 AM
--- NOTE | 2022-07-10 08:33 | CT Scan Report ---
CTA ANGIOGRAPHY OF THE HEAD CLINICAL HISTORY: trouble speaking/thinking COMPARISON STUDY: MRA of the head September 16, 2018.. TECHNIQUE: Helical axial images of the head were obtained following uneventful intravenous administr ation of 111 cc of Optiray. Sagittal and coronal reconstructions were viewed as well as maximal inten sity projections on an independent 3-D workstation. Automated exposure control was utilized for the study. A dose lowering technique was utilized adhering to the principles of ALARA. CT DOSE: 1027.24 mGy.cm FINDINGS: Please note that the CTA of the neck will be reported separately. No acute intracranial hem orrhage, midline shift or mass effect is present. Jugular system is unremarkable. Basal cisterns are patent. There is mild plaque within the cavernous carotids. There is no significant stenosis. The renetta ateral M1, M2, A1 and A2 segments are patent. Posterior circulation is intact. There is no intracrani al aneurysm. There is no dissection within the intracranial vessels. IMPRESSION: No central vessel occlusion. No intracranial aneurysm. ACT 112: Negative or not required by law. Electronically signed by: Jv Ojeda M.D. 07/10/2022 8:31 AM
[2022-07-10] MEDS ORDERED: VENLAFAXINE HCL 50 MG TAB PO SCH ×2 (09:00→21:00)
[2022-07-10] MEDS ORDERED: ASPIRIN 81 MG ECTAB PO SCH (09:00)
[2022-07-10] MEDS ORDERED: CLOPIDOGREL BISULFATE 75 MG TAB PO SCH (09:00)
[2022-07-10] MEDS ORDERED: METOPROLOL SUCC 50MG EXT REL TAB PO SCH (09:00)
[2022-07-10] MEDS ORDERED: MULTIVITAMIN TAB PO SCH (09:00)
[2022-07-10] MEDS: INSULIN ASPART PER UNIT SC SCH ×2 (09:38→13:18)
--- NOTE | 2022-07-10 12:12 | Electrocardiogram Report ---
Test Reason : Blood Pressure : / mmHG Vent. Rate : 078 BPM Atrial Rate : 078 BPM P-R Int : 102 ms QRS Dur : 078 ms QT Int : 386 ms P-R-T Axes : 021 -37 044 degrees QTc Int : 440 ms Sinus rhythm Left axis deviation Voltage criteria for left ventricular hypertrophy Nonspecific ST and T wave abnormality Abnormal ECG When compared with ECG of 17-SEP-2018 06:19, No significant change was found Confirmed by Tonny Olivas ([id number]) on 07/10/2022 12:12:25 PM Referred By: REFERRED SELF Confirmed By:Trevon Olivas
--- NOTE | 2022-07-10 12:39 | XCELERA ---
[id number]
--- NOTE | 2022-07-10 14:33 | Neurology Consultation ---
Date of Consultation July 10, 2022 Assessment & Plan (1) CVA (cerebral vascular accident): Plan 66-year-old female presenting with a 3-day history of aphasic speech, appears to have an incomplete expressive aphasia, possibly transcortical motor aphasia (intact repetition), preserved language comprehension. Brain MRI reveals an acute infarct within the left basal ganglia which likely explains her clinical presentation. She does not have an associated hemiparesis. She does have a chronic left periventricular infarct, occurring in 2018, with some residual tendency to list to the right with ambulation. No significant vascular lesion on CT angiography of the head and neck. No obvious cardioembolic source on echocardiography. Stroke risk factors for this patient include hyperlipidemia with intolerance to statins, not on treatment currently, hypertension, and diabetes mellitus. Her diabetes does appear to be well controlled, however. Further, patient should be on antiplatelet therapy. She inform me that she self discontinued daily low-dose aspirin about 6 months ago for uncertain reasons. I would recommend dual antiplatelet therapy, aspirin 81 mg/day and Plavix 75 mg/day for the next 3 weeks. Would then discontinue Plavix in favor of aspirin 81 mg/day. Patient would ideally be on some type of lipid-lowering therapy. She has a history of intolerance to several different statins. I wonder if she would be an appropriate candidate for Leqvio, Repatha or Nexletol/Nexlizet. Would need to discuss cholesterol-lowering management with her PCP or cardiology. Her diabetes mellitus does appear to be well controlled. She will need PT/OT/speech therapy consultations. Continue management of hypertension. Allow for permissive hypertension, systolic blood pressure goal 140 to 160 mmHg acutely. History of Present Illness Reason for Consultation: Stroke Requesting Physician: Dr. Isidro Attending Physician: Yelena Isidro MD History of Present Illness The patient is a 66-year-old female with a chief complaint of altered mental status characterized by difficulty with expressive speech which began 3 days ago, this past Thursday. Her speech has been slow and halting, with associated difficulty finding words, but without difficulty with language comprehension. She complains of a low-grade headache, no associated vision disturbance, focal weakness or sensory loss. This patient does have a past medical history of small acute stroke within the periventricular left frontal lobe occurring in September 2018. An MRA of the head and neck at that time were unremarkable. She had been evaluated by Dr. Elisa Baxter at that time and it was recommended that she start aspirin 81 mg/day for secondary stroke prevention. Past medical history is notable for well-controlled type 2 diabetes mellitus, hypertension, and dyslipidemia with intolerance to several different statins. She is a non- smoker. She is not very physically active. A CT of the head obtained yesterday, at the time of presentation suggested a 1.5 cm hypodensity within the left basal ganglia potentially consistent with an acute infarct. CT angiography of the head and neck were unremarkable. A follow-up brain MRI did reveal a 1.6 x 0.8 cm acute infarct within the left basal ganglia. I did independently review these images and was also able to appreciate the chronic left periventricular lacunar infarct as well as chronic microvascular ischemic disea se and mild generalized atrophy. The patient remarks that her symptoms have not significantly changed over the past few days, and again, no associated hemiparesis or other neurologic deficits. She does remark that she has had a tendency to list to the right while walking, ever since her 2019 stroke. She also informs me that she ran out of baby aspirin about 6 months ago and did not restart this treatment. Allergies Allergy/AdvReac Type Severity Reaction Status Date / Time amoxicillin Allergy Intermediate Hives and Verified 07/09/22 21:56 swelling atorvastatin [From Lipitor] Allergy Intermediate Hives Verified 07/09/22 21:56 doxycycline Allergy Intermediate hives Verified 07/09/22 21:56 green tea Allergy Intermediate "lungs get Verified 07/09/22 21:56 sore and I have a hard time breathing" Penicillins Allergy Intermediate Hives Verified 07/09/22 21:56 pravastatin Allergy Intermediate Hives Verified 07/09/22 21:56 tree and shrub pollen Allergy Intermediate runny Verified 07/09/22 21:56 nose/sinus issues losartan AdvReac Intermediate nasal Verified 07/09/22 21:56 congestion rosuvastatin [From Crestor] AdvReac Mild Headache Verified 07/09/22 21:56 Home Medications Medication Instructions Recorded Confirmed Type lactobacillus combination no.4 3 3,000 mmu cells PO Q OTHER DAY 06/26/20 07/09/22 History billion cell capsule (Probiotic) DDR Prime 1 tab PO QAM 08/20/21 07/09/22 History onguard 1 tab PO QAM 08/20/21 07/09/22 History albuterol sulfate 90 mcg/actuation 90 mcg inhalation Q6H PRN SHORT OF 11/05/21 07/09/22 Rx breath activated powder inhaler BREATH #1 ea melatonin 10 mg tablet 10 mg PO HS 11/26/21 07/09/22 History cholecalciferol (vitamin D3) 50 4,000 unit PO HS 05/22/22 07/09/22 History mcg (2,000 unit) tablet (Vitamin D3) latanoprost 0.005 % eye drops 1 drp ophthalmic (eye) HS 05/22/22 07/09/22 History CPAP Machine 05/30/22 06/13/22 History metoprolol succinate 50 mg 50 mg PO DAILY #90 tabs 06/13/22 07/09/22 Rx tablet,extended release 24 hr venlafaxine 50 mg tablet 50 mg PO .COMPLEX #270 tabs 06/13/22 07/09/22 Rx lorazepam 0.5 mg tablet 0.5 mg PO DIRECTED PRN PRIOR TO 07/09/22 07/09/22 History DENTAL APPT. metformin 500 mg tablet,extended 500 mg PO BID 07/09/22 07/09/22 History release 24 hr multivitamin 1 tab PO DAILY 07/09/22 07/09/22 History Patient History Medical History Anxiety and depression Asthma Fatty liver Fibromyalgia GERD (gastroesophageal reflux disease) Hiatal hernia Hyperlipidemia statin intolerance Hypertension Ischemic stroke September 2018--only deficit is if she "is tired sometimes my right foot drags"--follows with PCP Metabolic syndrome Migraine headache Mixed irritable bowel syndrome Myalgic encephalomyelitis chronic fatigue syndrome Obesity DIETER (obstructive sleep apnea) uses CPAP Peripheral neuropathy Subclinical hypothyroidism Type 2 diabetes mellitus Urinary incontinence Surgical History History of colonoscopy last 2018 @ [facility] History of esophagogastroduodenoscopy (EGD) History of hysterectomy BSO History of laparoscopy History of oral surgery History of tooth extraction Status post wisdom tooth extraction Family History Mother Diabetes CHF (congestive heart failure) Anxiety Depression Cardiac disorder Migraine headache Neuropathy Hypertension Grandmother Diabetes CHF (congestive heart failure) Brother Migraine headache Sister Diabetes Thyroid trouble Anxiety Hypertension Tinnitus Grandfather Lung cancer Unknown Multiple sclerosis Uncle Colon cancer Aunt Myocardial infarction Father Cardiac disorder Other No family history of adverse response to anesthesia Denies family history of Ovarian cancer Prostate cancer Breast cancer Social History Smoking Status: Never smoker Second Hand Exposure: Yes (father smoke when she was a child); Do You Dip or Chew Tobacco: No; Hx Alcohol Use: No Hx Substance Use: No Preferred Language: Romanian Communication Ability: Effective Visual Impairment: No Limitations Hearing Ability: Normal Glove Boarder Required: No Beliefs That Will Affect Care: None marital status: Current Living Situation: Spouse current occupational status: employed Feels Safe at Home: Yes Safety Concerns: Feels Safe At This Time Childhood Exposure to Second-Hand Smoke: Yes Diet Comment: Keto, balanced diet caffeine: Yes (Rarely) Dental Care, Regularly: Yes Physical Activity Frequency: 3-4 Times per Week Physical Activity Frequency Comment: Walking Seatbelt Use: always Sunscreen Use: Yes Assistive Devices: None Review of Systems Constitutional: + fatigue; no fever and no chills Eyes: no blind spots and no diplopia Ear, Nose, Mouth, Throat: no hearing loss Respiratory: no cough and no dyspnea Cardiovascular: no chest pain and no palpitations Gastrointestinal: no nausea and no vomiting Genitourinary: no dysuria Musculoskeletal: no myalgia Integumentary: no rash and no lesions Neurologic: as per Subjective / HPI Psychiatric: + depression and + anxiety Hematologic / Lymphatic: no easy bleeding and no easy bruising Exam (Neuro) Constitutional: well developed and well nourished; no acute distress Eyes: normal visual estrella by confrontation, PERRL, normal accommodation and EOM intact bilaterally; no fundoscopic abnormality, no nystagmus and no papilledema Cardiovascular: Vessels: normal carotid upstroke; no carotid bruit Neurologic: Oriented to:: Person, Place and Time Memory: Short Term Intact and Remote Intact Attention: Span Intact and Concentration Intact Language: Naming Objects and Repeating Phrases Speech Fluency: Dysarthria, Dysfluency and Halting Speech Aphasia: Aphasia (Reduced speech fluency, halting spontaneous speech although able to name objects and repeat phrases.) Fund of Knowledge: Current Events, Past History and Vocabulary Cranial Nerves: Normal II (Visual estrella full to confrontation, visual acuity normal), III, IV, (Pupils equal round reactive to light and accommodation, eye movements normal), V (Facial sensation intact), VII (There is no facial droop or weakness), VIII (Hearing intact), IX, X (Palate elevates to midline), XI (Shoulder shrug intact) and XII (Tongue protrudes to midline) Motor Strength: Normal Lower Extremities and Normal Upper Extremities; negative Pronator Drift Motor Tone: Normal Lower Extremities and Normal Upper Extremities Muscle Bulk/Involuntary Movements: No Involuntary Movements; negative Muscle Atrophy Sensation: Light Touch Intact, Pain/Temperature Intact, Vibration Intact and Proprioception Intact Coordination: Normal; negative Limited Balance, Dysdiadochokinesia, Finger-Nose Abnormal or Heel-Henning Abnormal Deep Tendon Reflexes: Rt Triceps: 2+, Lt Triceps: 2+, Rt Biceps: 2+, Lt Biceps: 2+, Rt Brachioradialis: 2+, Lt Brachioradialis: 2+, Rt Patellar: 2+, Lt Patellar: 2+, Rt Ankle: 1+ and Lt Ankle: 1+ Special Tests: negative Babinski Present Details: Gait not tested in the context of patient's current neurological status. Results & Data ([facility]) Vital Signs (Past 12 Hours) Vital Signs Temp Pulse Pulse Resp BP BP Pulse Ox 07/10/22 11:42 36.8 C 69 19 185/96 H 92 07/10/22 07:20 37.1 C 61 18 176/94 H 94 07/10/22 08:00 63 07/10/22 03:15 76 07/10/22 03:35 36.6 C 70 18 155/89 H 92 O2 Del Method 07/10/22 11:42 Room Air 07/10/22 07:20 Room Air 07/10/22 08:00 07/10/22 03:15 07/10/22 03:35 Room Air Laboratory Results WBC 10.04, hemoglobin 13.5, hematocrit 40.9, platelet count 165, sodium 137, potassium 3.6, BUN 14, creatinine 0.69, glucose 123, hemoglobin A1c 6.4, AST 16, ALT 19, troponin 3.8, triglycerides 272, cholesterol 275, LDL 170, VLDL 54, HDL [address] of the head, CT angiography of the head and neck, and brain MRI are as described above. I independently reviewed the images. Echocardiography revealed normal left ventricular systolic function, mild concentric left ventricular hypertrophy, grade 1 diastolic dysfunction, elevated right ventricular systolic pressure, normal left atrial size. Electrocardiogram revealed a normal sinus rhythm, 78 bpm. Coding Level of Care Code 43839 Initial In Care Lvl 3 Diagnoses CVA (cerebral vascular accident) I63.9
--- NOTE | 2022-07-10 15:32 | Pharmacy Report ---
- Date of Service July 10, 2022 - Pharmacy CVA/TIA Medication Review Medications to Prevent Stroke handout has been added to the patients discharge packet. Antiplatelet(s) * aspirin 81 mg PO daily + Plavix 75 mg PO daily x 3 weeks, then aspirin monotherapy thereafter Cholesterol * High intensity statin deferred due to intolerance in the past * Consideration for PCSK9 inhibitor per neurology, ultimately to be discussion with PCP or cardiology DVT Prophylaxis * SCD knee Therapeutic Anticoagulation * No history of Afib/Aflutter noted Type 2 Diabetes * A diabetes medication with proven CVD benefit will be deferred to their outpatient provider due to familiarity with risks/benefits of such therapies. "Medications to prevent stroke" handout has already been added to the patient's discharge packet, which instructs the patient to follow up with their outpatient provider to evaluate which diabetes medication with proven CVD benefit is best for them
--- NOTE | 2022-07-10 17:17 | Communication Note ---
Date of Service: July 10, 2022 By CMS guidelines, a determination that the admission or continued stay is not medically necessary has been made by a member of the UR committee and a ph ysician for this hospital stay, therefore a Code 44 will be completed and the Inpatient admission will be changed to outpatient. Yelena Isidro M.D.
[2022-07-10] MEDS ORDERED: STROKE PATIENT DISCHARGE STA (17:18)
--- NOTE | 2022-07-10 17:22 | Discharge Summary ---
Date of Service July 10, 2022 Admission HPI Per Admitting Provider Patient is a 66 y/o woman with a past medical history of CVA (lacunar infarct- 2019), HTN, DM2 who presents to the ED with confusion, slow thought process, and trouble with word finding that started on Thursday that has progressively gotten better. Her daughter was able to visit with her today and further noticed that she was not acting normally. The patient reports that she stopped taking her aspirin sometime ago on her own and is allergic to most statins. She denies any recent illness including fevers, chills, cough, congestion, GI or symptoms. In the ED: no acute distress, afebrile, blood pressure 190/100s and otherwise stable vital signs. She has no focal extremity weakness. She has no overt word finding difficulty but does have slow mental processing that is noted. WBC, H/H and platelets within normal limits. Chemistry without metabolic acidosis. Electrolytes and LFTs without significant abnormality. High-sensitivity troponin 3.8, within normal limits. COVID-19 RNA, CHIO test was negative. CT of the head and CT of the head neck were performed. Per preliminary stat read report new ischemic area is seen within the anterior left internal capsule consistent with ischemia. Principal Diagnosis Acute ischemic CVA Discharge Exam O- Vitals reviewed Gen: [AAOx3, NAD] HEENT: [anicteric sclerae, EOMI] CV: [RRR no mgr nl S1S2] Pulm: [CTAB no wcr] Abd: [+BS soft NT ND no masses or hernias] Ext: [no edema, 2+ DP pulses] Skin: [no rashes, warm/dry] Neuro: [full strength throughout, some mild expressive aphasia] Discharge Data Allergies Allergy/AdvReac Type Severity Reaction Status Date / Time amoxicillin Allergy Intermediate Hives and Verified 07/09/22 21:56 swelling atorvastatin [From Lipitor] Allergy Intermediate Hives Verified 07/09/22 21:56 doxycycline Allergy Intermediate hives Verified 07/09/22 21:56 green tea Allergy Intermediate "lungs get Verified 07/09/22 21:56 sore and I have a hard time breathing" Penicillins Allergy Intermediate Hives Verified 07/09/22 21:56 pravastatin Allergy Intermediate Hives Verified 07/09/22 21:56 tree and shrub pollen Allergy Intermediate runny Verified 07/09/22 21:56 nose/sinus issues losartan AdvReac Intermediate nasal Verified 07/09/22 21:56 congestion rosuvastatin [From Crestor] AdvReac Mild Headache Verified 07/09/22 21:56 Consultations 07/09/22 22:42 ED Decision to Admit Stat 07/10/22 11:05 Consult Neurology Routine 07/10/22 17:06 Consult [facility] 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 With CVA seen within the anterior left basal ganglia -CTA head/neck negative MRI brain confirms stroke ECHO w/ bubble negative tele NSR but will order cardiac event monitor on discharge x 30 days to look fo roccult AFIB hemoglobin A1c well controlled lipids severely elevated--> allergic to multiple statins--> start Zetia now rather than high intensity statin and consider Repeatha as outpt -would benefit from DM drug with CV benefit like GLP-1 and SGLT-2 inhibitor- defer to PCP -PT/OT ordered-ok to return home -appreciate Neuro consult -Start aspirin 81mg daily and clopidogrel 75mg Qday x 3 weeks, then drop to ASA alone -needs improved BP control--> increase Toprol XL to 75mg daily Type 2 diabetes mellitus: Plan: -Patient's home regimen held on admission -continue home regimen but hold metformin till AM of 07/11 due to contrast dye load consider SGLT-2 as above Hyperlipidemia: Plan: -as above DIETER (obstructive sleep apnea): Plan: -Continue at home CPAP Hypertension: Plan: -as above, increasing Toprol XL -f/u as outpt Anxiety and depression: Plan: -Continue at home Effexor. DVT proph-SCDs -Dispo-dc to home (2) Hypertension: (3) Anxiety and depression: (4) Severe obstructive sleep apnea: (5) Hyperlipidemia: (6) Type 2 diabetes mellitus: Total Time Total Time Spent Total Time Spent (In Minutes): 35 min Discharge Plan Discharge Items Patient Disposition: Home - Self-Care Reason For Visit: CVA Discharge Diagnosis: Acute CVA Condition on Discharge: Good Activity: Resume your previous activity Non-emergency contact: Primary Care Provider and Neurologist Call non-emergency contact if: you have any medication questions and your symptoms worsen Follow-up/Referrals: Anuj Carmona MD [Physician] - (Please follow up with Neurology in 3-4 weeks) Michelle Ojeda MD [Primary Care Provider] - (Please keep your follow up appointment next week as scheduled.) Diet: Carb Consistent or DM2 and Heart Healthy Addtl Attending Provider Instructions: You were admitted after having a small stroke that affected your speech. This most likely was the result of uncontrolled cholesterol and blood pressure. You were started on aspirin and Plavix as blood thinners. After 3 weeks, you can STOP the Plavix but CONTINUE on the aspirin. Your metoprolol dose was increased to better control your blood pressure. Your cholesterol is quite elevated and because you are allergic to statin drugs, you will be started on Zetia instead. Please discuss other cholesterol lowering drugs such as injectable medications like Repatha with Dr. Ojeda. You will be sent a cardiac event monitor in the mail to wear for 30 days to look for abnormal rhythms of the heart that can cause strokes. Risk Factors for Stroke: You can reduce your chances of stroke by working with your medical provider to adopt a healthy lifestyle. Some specific ways to lower your chance of stroke are: * If you are a smoker, now is the time to stop smoking cigarettes * If you are diabetic, improve the control of your blood sugars * Avoid excessive amounts of alcohol * Control high blood pressure * Lose weight if you are overweight * Be sure to lead an active lifestyle * Eat a healthy diet low in salt, cholesterol and fat You should know about other risk factors for stroke that you are unable to control. These include: * Age 55 years or older * Male gender * Certain racial groups: , or / * Family History of Stroke, Mini stroke or Heart Attack * Sickle Cell Disease Follow Up: It is important for you to keep your follow up appointments with your medical provider. Who to Call and When: Medical Emergencies: Call 911 immediately if you experience any of the following warning signs and symptoms of Stroke: * Sudden numbness or weakness of the face, arm or leg, especially on one side of the body * Sudden confusion, trouble speaking or understanding * Sudden trouble seeing in one or both eyes * Sudden trouble walking, dizziness, loss of balance or coordination * Sudden severe headache with no cause Do not delay calling 911 if you experience any warning signs or symptoms of a stroke. Delay in seeking medical attention may affect what treatments can be given to you. . Pending Studies at Discharge: No Stand-Alone Forms: My [facility], Smoking Cessation Medications and DC Order Prescriptions: New clopidogrel 75 mg Tablet 75 mg PO QAM Qty: 20 0RF aspirin 81 mg Tablet,Delayed Release (Dr/Ec) 81 mg PO QAM Qty: 90 0RF Rx Instructions: OTC ezetimibe [Zetia] 10 mg tablet 10 mg PO HS Qty: 30 0RF Continued (DME) CPAP Machine Misc See Rx Instructions .Route Rx Instructions: As directed venlafaxine 50 mg tablet 50 mg PO .COMPLEX Qty: 270 3RF Rx Instructions: 50 mg PO two tabs in the am, one tab in the pm; melatonin 10 mg tablet 10 mg PO HS onguard 1 tab PO QAM DDR Prime 1 tab PO QAM albuterol sulfate 90 mcg/actuation aerosol powdr breath activated 90 mcg INHALATION Q6H PRN (Reason: SHORT OF BREATH) Qty: 1 0RF Probiotic 3 billion cell capsule 3,000 mmu cells PO Q OTHER DAY Label Comments: takes at hs Rx Instructions: 3,000 mmu cells PO every other day; latanoprost 0.005 % Drops 1 drp OPHTHALMIC (EYE) HS cholecalciferol (vitamin D3) [Vitamin D3] 50 mcg (2,000 unit) Tablet 4,000 unit PO HS multivitamin Tablet 1 tab PO DAILY lorazepam 0.5 mg tablet 0.5 mg PO DIRECTED PRN (Reason: PRIOR TO DENTAL APPT.) Rx Instructions: Take one tablet 1 hour prior to medical or dental procedure. Changed metoprolol succinate 50 mg tablet extended release 24 hr 75 mg PO DAILY Qty: 45 0RF metformin 500 mg tablet extended release 24 hr 500 mg PO BID Qty: 60 0RF Rx Instructions: Do not restart this until the morning of 07/11 Discharge Orders: Discharge Order (Routine); Ordered 07/10/22 Ordered By: Yelena Morris/Other Patient Handouts: High Blood Sugar (Hyperglycemia), Hypoglycemia (Low Blood Sugar), Managing Type 2 Diabetes Admission Data Admit Date/Time: 07/09/22 23:27 Attending Provider: Yelena Isidro Admit Provider: Wilber Luke Primary Care Provider: Michelle Ojeda Other Providers: Rebecca Choudhury ; Anuj Carmona Coding Level of Care Code 03685 OBS Care - Discharge Diagnoses CVA (cerebral vascular accident) I63.9 Hypertension I10 Anxiety and depression F41.9; F32.A Severe obstructive sleep apnea G47.33 Hyperlipidemia E78.5 Type 2 diabetes mellitus E11.9
[2022-07-10] MEDS ORDERED: CHOLECALCIFEROL 1,000 UNITS 25 MCG TAB PO SCH (21:00)
== END 2022-07-10 18:04 | disposition home or self-care (01) ==
LOC: ED 17:47 → INTOOBSV 23:27 → SUATTDRO 23:27 → 4W 23:27

== ENCOUNTER 2023-03-25 15:52 | Inpatient (IN) ==
--- NOTE | 2023-03-25 16:11 | Emergency Department Note ---
Impression & Plan Chest pain, HTN (hypertension) ED Provider Note NAME: ROJAS WATERS AGE: 67 SEX: F : 1955 ARRIVES VIA: Ambulance INFORMANT: Patient ED PROVIDER(S): Chance Shea DO CHIEF COMPLAINT: chest pain and shortness of breath HPI: Patient is a 67-year-old female with a past medical history of CVA, hypertension, hyperlipidemia, diabetes, asthma and fibromyalgia that presents to the ER for midsternal chest tightness associated with shortness of breath which started around 1 PM. It resolved after about 2 hours. She was sitting on the floor when it occurred. She has never had this before. No belly pain, nausea, vomiting, or diarrhea. No dysuria, urgency, or frequency. No other exacerbating or remitting factors. She did not take any aspirin. PAST MEDICAL HISTORY:See Below PAST SURGICAL HISTORY:See Below FAMILY HISTORY:See Below SOCIAL HISTORY:See Below HOME MEDICATIONS:See Below ALLERGIES:See Below VITALS:See Below PHYSICAL EXAMINATION: GENERAL: Sitting up in bed, alert, well appearing, well nourished, no distress, non-toxic EYE EXAM: normal conjunctiva. OROPHARYNX: no exudate, no erythema, lips, buccal mucosa, and tongue normal and mucous membranes are moist NECK: supple, no nuchal rigidity, no adenopathy, non-tender LUNGS: Clear to auscultation. Normal chest wall mechanics HEART: no murmurs, S1 normal and S2 normal ABDOMEN: abdomen soft, non-tender, normo-active bowel sounds, no masses, no rebound or guarding. BACK: Back is symmetrical on inspection and there is no deformity, no midline tenderness, no CVA tenderness. UPPER EXTREMITIES: upper extremities are grossly normal. LOWER EXTREMITIES: No pitting edema. Calves are equal bilateral NEURO EXAM: Normal sensorium, cranial nerves II-XII grossly intact, normal speech, no gross weakness of arms, no gross weakness of legs. MEDICAL DECISION MAKING: Patient is a 67-year-old female who presents ER for above-stated complaint. IV was established blood work was obtained. External records reviewed. Patient has a past medical history of hypertension, CVA, diabetes and hyperlipidemia. Patient was markedly hypertensive with systolic pressures in the 200s. Labs show no significant leukocytosis or anemia. BMP was remarkable for glucose slightly elevated at 153. Troponin was negative. LFTs were and lipase were unremarkable. COVID was negative. Chest x-ray unremarkable. EKG nondiagnostic. Patient was given aspirin and labetalol for pressures in the 200s. She is updated bedside moderate risk per heart score and was discussed with the hospitalist for further evaluation management and treatment Triage Nursing notes reviewed. Limited review of prior medical records performed Vital Signs: reviewed and remarkable for no significant abnormalities Differential diagnosis: Differential diagnoses includes but is not limited to pneumonia, bronchitis, COPD/Asthma exacerbation, pneumothorax, pulmonary embolism, congestive heart failure, acute coronary syndrome ER treatment provided: See below Diagnostics interpreted by me include EKG and cardiac monitoring as listed below: -Cardiac Monitoring: An order was placed for continuous cardiac monitoring. The monitor shows a rate of 80 with sinus rhythm. -ECG: Sinus rhythm rate 77 Left axis No PVCs QTc 445 -Laboratory studies:Interpreted by me as stated above in MDM and shown below. Imaging studies: Xrays: As interpreted by me: Portable AP upright 1 view of the chest shows no focal CTs show: none Consultation(s): As described in [facility] Procedures:none Critical Care: None Past Med/Surg History Medical History (Updated 03/25/23 @ 18:56 by Chance Shea DO) Anxiety and depression Asthma Fatty liver Fibromyalgia GERD (gastroesophageal reflux disease) Hiatal hernia History of colon polyps History of CVA (cerebrovascular accident) h/o ischemic stroke x 2 (2018 and 2021) Hyperlipidemia statin intolerance Hypertension Metabolic syndrome Migraine headache Mixed irritable bowel syndrome Myalgic encephalomyelitis chronic fatigue syndrome Nocturnal hypoxemia Obesity DIETER (obstructive sleep apnea) uses CPAP Peripheral neuropathy Subclinical hypothyroidism Type 2 diabetes mellitus Urinary incontinence Surgical History History of colonoscopy last 2018 @ [facility] History of esophagogastroduodenoscopy (EGD) History of hysterectomy BSO History of laparoscopy History of oral surgery History of tooth extraction Status post wisdom tooth extraction Family History Mother Diabetes CHF (congestive heart failure) Anxiety Depression Cardiac disorder Migraine headache Neuropathy Hypertension Grandmother Diabetes CHF (congestive heart failure) Brother Migraine headache Sister Diabetes Thyroid trouble Anxiety Hypertension Tinnitus Grandfather Lung cancer Unknown Multiple sclerosis Uncle Colon cancer Aunt Myocardial infarction Father Cardiac disorder Other No family history of adverse response to anesthesia Denies family history of Ovarian cancer Prostate cancer Breast cancer Social History Smoking Status: Never smoker Second Hand Exposure: Yes (father smoke when she was a child); Do You Dip or Chew Tobacco: No; Hx Alcohol Use: No Hx Substance Use: No Preferred Language: Estonian Communication Ability: Effective Visual Impairment: No Limitations Hearing Ability: Normal Print Producer Required: No Beliefs That Will Affect Care: None marital status: Current Living Situation: Spouse current occupational status: employed Other Information That Helps Us Care for You: No Feels Safe at Home: Yes Safety Concerns: Feels Safe At This Time Childhood Exposure to Second-Hand Smoke: Yes Diet: other Diet Comment: Keto, balanced diet caffeine: Yes (Rarely) Dental Care, Regularly: Yes Physical Activity Frequency: 3-4 Times per Week Physical Activity Frequency Comment: Walking Seatbelt Use: always Sunscreen Use: Yes Assistive Devices: CPAP and Glasses Allergies Allergies Allergy/AdvReac Type Severity Reaction Status Date / Time amoxicillin Allergy Intermediate Hives and Verified 10/21/22 13:21 swelling atorvastatin [From Lipitor] Allergy Intermediate Hives Verified 10/21/22 13:21 doxycycline Allergy Intermediate hives Verified 10/21/22 13:21 green tea Allergy Intermediate "lungs get Verified 10/21/22 13:21 sore and I have a hard time breathing" Penicillins Allergy Intermediate Hives Verified 10/21/22 13:21 pravastatin Allergy Intermediate Hives Verified 10/21/22 13:21 tree and shrub pollen Allergy Intermediate runny Verified 10/21/22 13:21 nose/sinus issues losartan AdvReac Intermediate nasal Verified 10/21/22 13:21 congestion Home Meds Home Medications Medication Instructions Recorded Confirmed melatonin 10 mg tablet 10 mg PO HS PRN Sleep 11/26/21 03/25/23 cholecalciferol (vitamin D3) 50 4,000 unit PO HS 05/22/22 03/25/23 mcg (2,000 unit) tablet (Vitamin D3) latanoprost 0.005 % eye drops 1 drp OPB HS 05/22/22 03/25/23 multivitamin 1 tab PO DAILY 07/09/22 03/25/23 coenzyme Q10 200 mg capsule (Co 200 mg PO 3XWK 10/21/22 03/25/23 Q-10) Turmeric Chews 2 tabs PO DAILY 03/25/23 03/25/23 Vinegar Cap 1 tab PO DAILY 03/25/23 03/25/23 Zinc & D3 1 tab PO DAILY 03/25/23 03/25/23 metoprolol succinate 50 mg 50 mg PO HS 03/25/23 03/25/23 tablet,extended release 24 hr rosuvastatin 5 mg tablet 5 mg PO QPM 03/25/23 03/25/23 vitamin B complex 1 tab PO DAILY 03/25/23 03/25/23 Previous Rx's Medication Instructions Recorded albuterol sulfate 90 mcg/actuation 90 mcg inhalation Q6H PRN SHORT OF 11/05/21 breath activated powder inhaler BREATH #1 ea aspirin 81 mg tablet,delayed 81 mg PO QAM #90 tabs 07/10/22 release metformin 500 mg tablet,extended 500 mg PO BID #180 tabs 10/21/22 release 24 hr lorazepam 0.5 mg tablet 0.5 mg PO DIRECTED PRN PRIOR TO 01/21/23 DENTAL APPT. #5 tabs venlafaxine 150 mg 150 mg PO DAILY #90 caps 03/25/23 capsule,extended release 24 hr Results & Data (ED) Vital Signs Vital Signs - 24 hr 03/25/23 15:48 03/25/23 15:48 03/25/23 16:14 Temperature 36.8 C Temperature Source Oral Pulse Rate 78 Pulse Rate from SpO2 Sensor Respiratory Rate 18 Respiratory Effort / Characteristics Non-Labored Spontaneous Accessory Muscle Use Respiratory Depth Normal Respiratory Pattern Regular Blood Pressure 209/134 H Blood Pressure Mean 159 Pulse Oximetry 96 95 95 Oxygen Delivery Method Room Air Room Air Room Air Oxygen Flow Rate 0 Sepsis Recent Fever Within 48 Hours No Sepsis New/Unexplained Change in Mental Status N/A Sepsis Action Taken by Nursing No Action Required 03/25/23 16:13 03/25/23 16:12 03/25/23 16:32 Temperature Temperature Source Pulse Rate 78 78 85 Pulse Rate from SpO2 Sensor 78 Respiratory Rate 19 14 Respiratory Effort / Characteristics Respiratory Depth Respiratory Pattern Blood Pressure Blood Pressure Mean Pulse Oximetry 96 Oxygen Delivery Method Oxygen Flow Rate Sepsis Recent Fever Within 48 Hours Sepsis New/Unexplained Change in Mental Status Sepsis Action Taken by Nursing 03/25/23 16:34 03/25/23 16:34 03/25/23 17:00 Temperature Temperature Source Pulse Rate 77 Pulse Rate from SpO2 Sensor 77 Respiratory Rate 23 Respiratory Effort / Characteristics Respiratory Depth Respiratory Pattern Blood Pressure 219/98 H 201/102 H Blood Pressure Mean 139 160 Pulse Oximetry 95 Oxygen Delivery Method Room Air Oxygen Flow Rate Sepsis Recent Fever Within 48 Hours Sepsis New/Unexplained Change in Mental Status Sepsis Action Taken by Nursing 03/25/23 17:00 03/25/23 17:20 03/25/23 17:01 Temperature Temperature Source Pulse Rate 77 78 78 Pulse Rate from SpO2 Sensor Respiratory Rate 19 17 Respiratory Effort / Characteristics Respiratory Depth Respiratory Pattern Blood Pressure 208/121 H Blood Pressure Mean Pulse Oximetry Oxygen Delivery Method Oxygen Flow Rate Sepsis Recent Fever Within 48 Hours Sepsis New/Unexplained Change in Mental Status Sepsis Action Taken by Nursing 03/25/23 17:01 03/25/23 17:04 03/25/23 17:04 Temperature Temperature Source Pulse Rate 76 Pulse Rate from SpO2 Sensor Respiratory Rate 16 Respiratory Effort / Characteristics Respiratory Depth Respiratory Pattern Blood Pressure 194/105 H 204/106 H Blood Pressure Mean 144 154 Pulse Oximetry Oxygen Delivery Method Oxygen Flow Rate Sepsis Recent Fever Within 48 Hours Sepsis New/Unexplained Change in Mental Status Sepsis Action Taken by Nursing 03/25/23 17:20 03/25/23 17:20 03/25/23 17:30 Temperature Temperature Source Pulse Rate 78 Pulse Rate from SpO2 Sensor Respiratory Rate 18 Respiratory Effort / Characteristics Respiratory Depth Respiratory Pattern Blood Pressure 208/121 H 190/104 H Blood Pressure Mean 154 140 Pulse Oximetry Oxygen Delivery Method Oxygen Flow Rate Sepsis Recent Fever Within 48 Hours Sepsis New/Unexplained Change in Mental Status Sepsis Action Taken by Nursing 03/25/23 17:30 03/25/23 17:35 03/25/23 17:45 Temperature Temperature Source Pulse Rate 77 78 77 Pulse Rate from SpO2 Sensor Respiratory Rate 16 18 Respiratory Effort / Characteristics Respiratory Depth Respiratory Pattern Blood Pressure 190/104 H Blood Pressure Mean Pulse Oximetry Oxygen Delivery Method Oxygen Flow Rate Sepsis Recent Fever Within 48 Hours Sepsis New/Unexplained Change in Mental Status Sepsis Action Taken by Nursing 03/25/23 17:46 03/25/23 17:46 Temperature Temperature Source Pulse Rate 78 Pulse Rate from SpO2 Sensor Respiratory Rate 20 Respiratory Effort / Characteristics Respiratory Depth Respiratory Pattern Blood Pressure 228/102 H Blood Pressure Mean 146 Pulse Oximetry Oxygen Delivery Method Oxygen Flow Rate Sepsis Recent Fever Within 48 Hours Sepsis New/Unexplained Change in Mental Status Sepsis Action Taken by Nursing Laboratory Data 03/25/23 16:21 07/19/23 16:21 Lab Results 03/25/23 03/25/23 03/25/23 Range/Units 16:21 16:21 16:21 WBC 9.69 (4.8-10.8) K/ul RBC 4.66 (4.20-5.40) M/uL Hgb 14.8 (12.0-16.0) g/dl Hct 40.8 (37.0-47.0) % MCV 87.6 (80.0-100.0) fL MCH 31.8 (25.0-34.0) pg MCHC 36.3 H (32.0-36.0) g/dL RDW Std Deviation 41.3 (36.4-46.3) fL RDW Coeff of Homa 13.1 (11.5-14.5) % Plt Count 320 (130-400) K/uL MPV 10.1 (9.4-12.4) fL Immature Gran % (Auto) 0.5 % Neut % (Auto) 60.3 % Lymph % (Auto) 22.6 % Harney % (Auto) 8.2 % Eos % (Auto) 7.5 % Baso % (Auto) 0.9 % Neut # (Auto) 5.84 (1.40-6.50) K/uL Lymph # (Auto) 2.19 (1.2-3.4) K/uL Harney # (Auto) 0.79 H (0.11-0.59) K/uL Eos # (Auto) 0.73 H (0-0.50) K/uL Baso # (Auto) 0.09 (0-0.2) K/uL Immature Gran # (Auto) 0.05 (0.01-0.20) K/uL Sodium 138 (136-145) mmol/L Potassium 4.0 (3.5-5.1) mmol/L Chloride 104 (98-107) mmol/L Carbon Dioxide 25 (21-32) mmol/L Anion Gap 9 (3-11) BUN 18 (6-23) mg/dl Creatinine 0.74 (0.6-1.2) mg/dl Est Cr Clr Drug Dosing 87.7 ml/min Est GFR ( Amer) 97.8 ml/min Est GFR (Non-Af Amer) 84.4 ml/min BUN/Creatinine Ratio 24.3 H (10-20) Glucose 245 H (70-99(Fasting)) mg/dl Calcium 9.8 (8.6-10.3) mg/dl Total Bilirubin 0.6 (0.2-1.0) mg/dl AST 21 (13-39) U/L ALT 28 (7-52) U/L Alkaline Phosphatase 118 H (34-104) U/L Troponin I High Sens 3.2 (0-14) pg/ml Total Protein 7.3 (6.0-8.3) gm/dl Albumin 4.4 (3.4-5.0) gm/dl Globulin 2.9 (2.5-4.0) gm/dl Albumin/Globulin Ratio 1.5 (0.9-2) Lipase 50 (11-82) U/L SARS-CoV-2, RNA, NAAT NEGATIVE (NEGATIVE) Administered Medications Insulin Aspart (Insulin Aspart Per Unit Charge) 0 units SC ACHS JOHN Stop: 04/24/23 20:59 Last Admin: 03/25/23 20:54 Dose: 1 units Documented By: DIMAS Co-signed By: KERRI Insulin Glargine (Lantus Per Unit Charge) 9 units SQ BID JOHN Stop: 04/24/23 20:59 Last Admin: 03/25/23 20:55 Dose: 9 units Documented By: DIMAS Co-signed By: KERRI Labetalol HCl (Labetalol Hcl Iv 5 Mg/Ml 20ml) 10 mg IV Q10M PRN PRN Reason: HTN >180/105. First line Last Admin: 03/25/23 20:55 Dose: 10 mg Documented By: DIMAS Co-signed By: KERRI Discontinued Medications Aspirin (Aspirin Chew 324 Mg) 324 mg PO NOW STA Stop: 03/25/23 16:28 Last Admin: 03/25/23 16:32 Dose: 324 mg Documented By: HUY Hydralazine HCl (Hydralazine Hcl 20 Mg/Ml Vial) 10 mg IV NOW STA Stop: 03/25/23 17:52 Last Admin: 03/25/23 18:02 Dose: 10 mg Documented By: CHRISTIANNE Hydrochlorothiazide (Hydrochlorothiazide 25 Mg Tab) 25 mg PO NOW ONE Stop: 03/25/23 18:01 Last Admin: 03/25/23 18:26 Dose: 25 mg Documented By: CHRISTIANNE Labetalol HCl (Labetalol Hcl Iv 5 Mg/Ml 20ml) 10 mg IV NOW STA Stop: 03/25/23 17:16 Last Admin: 03/25/23 17:20 Dose: 10 mg Documented By: HUY Co-signed By: YASH Imaging Data Radiologist's Impression: Chest X-Ray 03/25/23 16:07 XR chest 1V portable HISTORY: Chest pain, nonspecific COMPARISON: None. FINDINGS: The lungs are clear. The cardiomediastinal silhouette is top normal in size. No pleural effusions. No pneumothorax. No acute fractures identified. No evidence for pulmonary edema. IMPRESSION: No acute process. ACT 112: Negative or not required by law. Electronically signed by: Alex Champion M.D. 03/25/2023 4:48 PM Discharge Plan Visit Data Chief Complaint: Shortness of Breath/Dyspnea Stated Complaint: SOB ED Provider: Chance Shea Discharge Problem: Chest pain, HTN (hypertension) Patient Disposition: Admitted As Inpatient Discharge Instructions Interventions: ED Discharge Assessment Last Done: 03/25/23 21:04
[2023-03-25] MEDS ORDERED: ASPIRIN CHEW 324 MG PO STA (16:27)
[2023-03-25 16:44] LABS: Basophils # (auto) 0.09 K/uL (0-0.2); Basophils % (auto) 0.9 %; Eosinophils # (auto) 0.73 K/uL (0-0.50); Eosinophils % (auto) 7.5 %; Hematocrit (blood only) 40.8 % (37.0-47.0); Hemoglobin 14.8 g/dl (12.0-16.0); Immature Granulocytes # (auto) 0.05 K/uL (0.01-0.20); Immature Granulocytes % (auto) 0.5 %; Lymphocytes # (auto) 2.19 K/uL (1.2-3.4); Lymphocytes % (auto) 22.6 %; Mean Corpuscular Hemoglobin 31.8 pg (25.0-34.0); Mean Corpuscular Hgb Conc 36.3 g/dL (32.0-36.0); Mean Corpuscular Volume 87.6 fL (80.0-100.0); Mean Platelet Volume 10.1 fL (9.4-12.4); Monocytes # (auto) 0.79 K/uL (0.11-0.59); Monocytes % (auto) 8.2 %; Neutrophils # (auto) 5.84 K/uL (1.40-6.50); Neutrophils % (auto) 60.3 %; Platelet Count 320 K/uL (130-400); RDW Coefficient of Variation 13.1 % (11.5-14.5); RDW Standard Deviation 41.3 fL (36.4-46.3); Red Blood Count 4.66 M/uL (4.20-5.40); White Blood Count 9.69 K/ul (4.8-10.8)
--- NOTE | 2023-03-25 16:49 | XRay Report ---
XR chest 1V portable HISTORY: Chest pain, nonspecific COMPARISON: None. FINDINGS: The lungs are clear. The cardiomediastinal silhouette is top normal in size. No pleural eff usions. No pneumothorax. No acute fractures identified. No evidence for pulmonary edema. IMPRESSION: No acute process. ACT 112: Negative or not required by law. Electronically signed by: Alex Champion M.D. 03/25/2023 4:48 PM
[2023-03-25 17:01] LABS: Albumin Globulin Ratio 1.5 (0.9-2); Albumin Level 4.4 gm/dl (3.4-5.0); BUN Creatinine Ratio 24.3 (10-20); Bilirubin,Total 0.6 mg/dl (0.2-1.0); Calcium 9.8 mg/dl (8.6-10.3); Creatinine Clr Calc Pharmacy 87.7 ml/min; Est GFR (African American) 97.8 ml/min; Est GFR (Non-African American) 84.4 ml/min; Globulin 2.9 gm/dl (2.5-4.0); Total Protein 7.3 gm/dl (6.0-8.3)
[2023-03-25 17:05] LABS: Troponin I High Sensitivity 3.2 pg/ml (0-14)
[2023-03-25] MEDS ORDERED: LABETALOL HCL IV 5 MG/ML 20ML IV STA (17:15)
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
[2023-03-25] MEDS ORDERED: GLUCOSE 10 TAB/TUBE PO PRN (17:51)
[2023-03-25] MEDS ORDERED: GLUCOSE 40% GEL 15 GM TUBE PO PRN (17:51)
[2023-03-25] MEDS ORDERED: DEXTROSE 50% 50 ML SYRINGE IV PRN (17:51)
[2023-03-25] MEDS ORDERED: CARBOHYDRATES FOR HYPOGLYCEMIA PO PRN (17:51)
[2023-03-25] MEDS ORDERED: GLUCAGON FOR INJ 1 MG VIAL SQ PRN (17:51)
[2023-03-25] MEDS ORDERED: hydrALAZINE HCL 20 MG/ML VIAL IV STA (17:51)
[2023-03-25] MEDS ORDERED: hydroCHLOROthiazide 25 MG TAB PO ONE (18:00)
[2023-03-25] MEDS: INSULIN ASPART PER UNIT CHARGE SC SCH (20:54)
[2023-03-25] MEDS: LABETALOL HCL IV 5 MG/ML 20ML IV PRN (20:55)
[2023-03-25] MEDS: LANTUS PER UNIT CHARGE SQ SCH (20:55)
[2023-03-25] MEDS ORDERED: ONDANSETRON INJ 2 MG/ML 2 ML VIAL IV PRN (21:56)
[2023-03-25] MEDS ORDERED: ALBUTEROL HFA 8 GM INHALER INH PRN (22:56)
[2023-03-25] MEDS: ACETAMINOPHEN 325 MG TAB PO PRN (23:16)
[2023-03-25] MEDS: MELATONIN 3 MG TAB PO SCH (23:17)
[2023-03-25] MEDS: LATANOPROST 0.005% OP SOLN 2.5 ML BTL OP SCH (23:17)
[2023-03-26] MEDS: ACETAMINOPHEN 325 MG TAB PO PRN ×2 (06:22→21:06)
[2023-03-26 06:56] LABS: Basophils # (auto) 0.14 K/uL (0-0.2); Basophils % (auto) 1.3 %; Eosinophils % (auto) 6.5 %; Hematocrit (blood only) 41.3 % (37.0-47.0); Hemoglobin 14.2 g/dl (12.0-16.0); Immature Granulocytes # (auto) 0.03 K/uL (0.01-0.20); Immature Granulocytes % (auto) 0.3 %; Lymphocytes # (auto) 3.59 K/uL (1.2-3.4); Lymphocytes % (auto) 33.5 %; Mean Corpuscular Hgb Conc 34.4 g/dL (32.0-36.0); Mean Corpuscular Volume 87.1 fL (80.0-100.0); Mean Platelet Volume 9.6 fL (9.4-12.4); Monocytes # (auto) 1.01 K/uL (0.11-0.59); Monocytes % (auto) 9.4 %; Neutrophils # (auto) 5.24 K/uL (1.40-6.50); Platelet Count 297 K/uL (130-400); RDW Coefficient of Variation 13.2 % (11.5-14.5); RDW Standard Deviation 41.5 fL (36.4-46.3); Red Blood Count 4.74 M/uL (4.20-5.40); White Blood Count 10.71 K/ul (4.8-10.8)
[2023-03-26 07:11] LABS: BUN Creatinine Ratio 23.9 (10-20); Calcium 10.1 mg/dl (8.6-10.3); Creatinine Clr Calc Pharmacy 92.2 ml/min; Est GFR (African American) 102.9 ml/min; Est GFR (Non-African American) 88.8 ml/min; Potassium 3.6 mmol/L (3.5-5.1)
[2023-03-26] MEDS: INSULIN ASPART PER UNIT CHARGE SC SCH ×4 (08:22→21:06)
[2023-03-26] MEDS: ENOXAPARIN INJ 40 MG/0.4 ML SYR SQ SCH (08:25)
[2023-03-26] MEDS: METOPROLOL SUCC 50MG EXT REL TAB PO SCH (08:25)
--- NOTE | 2023-03-26 08:25 | Hospitalist Progress Note ---
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 DIETER Continue CPAP nightly and as needed Type II DM Metformin switched to basal bolus insulin SSI while inpatient, hyperglycemic to 245 on admission - Last A1C 7.1%. Anxiety/depression Continue venlafaxine Hyperlipidemia Continue rosuvastatin 5 mg daily, patient intolerant of pravastatin/atorvastatin DVT prophylaxis: Lovenox Diet: Low-salt, DM (2) DIETER (obstructive sleep apnea): (3) Type 2 diabetes mellitus: (4) Fibromyalgia: Admission and Anticipated Discharge Date Admission Date: March 25, 2023 Subjective Pt with headache and accelerated htn, pt has only modest improvement with labetolol, has history of headache, no visual changes, no focal neurological changes Physical Exam Physical Exam: awake alert and appropriate no focal neurological deficits no visual deficits no carotid bruits her heart is regular without murmurs her lungs are clear abdomen NABS with no bruits trace lower extremity edema Results & Data Results & Data Vital Signs (Past 12 Hours) Vital Signs Temp Pulse Pulse Resp BP BP Pulse Ox 03/26/23 07:11 98.4 F 70 18 146/82 H 94 03/26/23 02:36 97.9 F 75 20 172/85 H 97 03/25/23 21:38 82 03/26/23 02:24 81 03/25/23 23:21 97.5 F L 91 H 17 170/86 H 97 03/25/23 22:04 87 171/88 H 03/25/23 21:35 98.2 F 82 20 171/88 H 97 03/25/23 21:56 98.2 F 82 18 171/88 H 97 03/25/23 21:04 O2 Del Method 03/26/23 07:11 Room Air 03/26/23 02:36 Nasal CPAP 03/25/23 21:38 03/26/23 02:24 03/25/23 23:21 Room Air 03/25/23 22:04 03/25/23 21:35 Room Air 03/25/23 21:56 Room Air 03/25/23 21:04 Room Air Laboratory Results reviewed CBC reviewed chemistry PG Care Time/CCT Total # of Minutes Spent Total Time Spent with Patient: Total time spent is greater than 50% in coordination of care (as documented) at patient's floor/unit and/or counseling patient: Coding Level of Care Code 63915 SUB INP/OBS CARE 3/50MIN Diagnoses Hypertension I10 DIETER (obstructive sleep apnea) G47.33 Type 2 diabetes mellitus E11.9 Fibromyalgia M79.7
[2023-03-26] MEDS: ROSUVASTATIN CALCIUM 5 MG TAB PO SCH (08:26)
[2023-03-26] MEDS: LANTUS PER UNIT CHARGE SQ SCH ×2 (08:27→21:06)
[2023-03-26] MEDS: ASPIRIN 81 MG ECTAB PO SCH (08:27)
[2023-03-26] MEDS: VENLAFAXINE HCL XR 150 MG CAPXR PO SCH (08:27)
[2023-03-26] MEDS ORDERED: hydroCHLOROthiazide 25 MG TAB PO SCH (09:00)
[2023-03-26] MEDS ORDERED: IOVERSOL 350 MG 125mL Prefilled Syringe IV ONE (10:05)
--- NOTE | 2023-03-26 10:22 | CT Scan Report ---
CT angio chest PE protocol CLINICAL HISTORY: PE TECHNIQUE: Multidetector row helical CT of the chest was performed with angiographic protocol. Baker l and sagittal reformations were obtained. Coronal and sagittal MIPS were obtained from the axial garry a set and were submitted for review. Automated dose lowering techniques and/or adjustment according to patient size were utilized for this exam. Comparison: Comparison is made to chest radiograph 03/25/2023 FINDINGS: Lungs and pleura: Atelectasis versus scarring is seen in the dependent portions of the lungs. Heart and pericardium: Cardiomegaly is seen with biatrial enlargement. Vessels: No evidence of pulmonary embolism. Mediastinum and radha: Subcentimeter lymph nodes are seen. Chest wall and lower neck: Subcentimeter axillary lymph nodes noted. Abdomen: Unremarkable. Bones: Degenerative changes in the thoracic spine. IMPRESSION: No acute abnormality and in particular no evidence of pulmonary embolus. ACT 112: Negative or not required by law. Electronically signed by: Priyank Pena M.D. 03/26/2023 10:21 AM
[2023-03-26] MEDS: LABETALOL HCL IV 5 MG/ML 20ML IV PRN (11:34)
[2023-03-26] MEDS ORDERED: cloNIDine HCL 0.1 MG TAB PO PRN (12:18)
[2023-03-26] MEDS ORDERED: hydrALAZINE HCL 20 MG/ML VIAL IV PRN (12:18)
[2023-03-26] MEDS ORDERED: MoRPHine SULFATE 2 MG/ML CARP IV PRN (12:19)
--- NOTE | 2023-03-26 14:30 | Electrocardiogram Report ---
Test Reason : Blood Pressure : / mmHG Vent. Rate : 077 BPM Atrial Rate : 077 BPM P-R Int : 114 ms QRS Dur : 078 ms QT Int : 394 ms P-R-T Axes : -02 -33 040 degrees QTc Int : 445 ms Normal sinus rhythm Left axis deviation Minimal voltage criteria for LVH, may be normal variant Abnormal ECG When compared with ECG of 09-JUL-2022 18:47, No significant change was found Confirmed by Tonny Olivas ([id number]) on 03/26/2023 2:30:11 PM Referred By: Abhi Mensah Confirmed By:Trevon Olivas
[2023-03-26] MEDS ORDERED: METOPROLOL SUCC 50MG EXT REL TAB PO ONE (21:00)
[2023-03-26] MEDS ORDERED: SPIRONOLACTONE 25 MG TAB PO SCH (21:00)
[2023-03-26] MEDS: LATANOPROST 0.005% OP SOLN 2.5 ML BTL OP SCH (21:07)
[2023-03-26] MEDS: MELATONIN 3 MG TAB PO SCH (21:07)
--- NOTE | 2023-03-27 07:17 | Hospitalist Progress Note ---
Date of Service March 27, 2023 Assessment & Plan (1) Hypertension: Plan: Dyspnea on exertion question hypertensive emergency Received aspirin full dose and labetalol 10 mg x 1 in ER Chest x-ray: No acute finding, COVID is negative CTA for PE negative 03/26/23 Severe symptomatic hypertension - Metoprolol 50mg added spironolactone trial of clonidine as needed if needed to see if that will be a better blood pressure control medication for her long ter - Intolerance of JOSAFAT/ARBs, Amlodipine wasn't tolerated due to leg edema. 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 -CTA of neck 07/29 without significant stenosis DIETER Continue CPAP nightly and as needed Type II DM Metformin switched to basal bolus insulin SSI while inpatient, hyperglycemic to 245 on admission - Last A1C 7.1%. Anxiety/depression Continue venlafaxine Hyperlipidemia Continue rosuvastatin 5 mg daily, patient intolerant of pravastatin/atorvastatin DVT prophylaxis: Lovenox Diet: Low-salt, DM (2) DIETER (obstructive sleep apnea): (3) Type 2 diabetes mellitus: (4) Fibromyalgia: (5) HTN (hypertension): Admission and Anticipated Discharge Date Admission Date: March 25, 2023 Results & Data Results & Data Vital Signs (Past 12 Hours) Vital Signs Temp Pulse Pulse Resp BP BP Pulse Ox 03/27/23 02:49 97.7 F 66 18 144/83 H 94 03/27/23 01:53 03/26/23 22:00 67 03/26/23 22:46 98.8 F 73 18 152/83 H 96 03/26/23 19:16 99.0 F 79 18 165/93 H 93 O2 Del Method 03/27/23 02:49 CPAP 03/27/23 01:53 Room Air 03/26/23 22:00 03/26/23 22:46 Room Air 03/26/23 19:16 Room Air PG Care Time/CCT Total # of Minutes Spent Total Time Spent with Patient: Total time spent is greater than 50% in coordination of care (as documented) at patient's floor/unit and/or counseling patient: Coding Diagnoses Hypertension I10 DIETER (obstructive sleep apnea) G47.33 Type 2 diabetes mellitus E11.9 Fibromyalgia M79.7
[2023-03-27 08:18] LABS: Eosinophils # (auto) 0.75 K/uL (0-0.50); Eosinophils % (auto) 7.5 %; Hematocrit (blood only) 42.2 % (37.0-47.0); Hemoglobin 14.4 g/dl (12.0-16.0); Immature Granulocytes # (auto) 0.02 K/uL (0.01-0.20); Immature Granulocytes % (auto) 0.2 %; Lymphocytes % (auto) 33.8 %; Mean Corpuscular Hemoglobin 29.7 pg (25.0-34.0); Mean Corpuscular Hgb Conc 34.1 g/dL (32.0-36.0); Mean Platelet Volume 9.7 fL (9.4-12.4); Monocytes # (auto) 1.03 K/uL (0.11-0.59); Monocytes % (auto) 10.2 %; Neutrophils # (auto) 4.75 K/uL (1.40-6.50); Neutrophils % (auto) 47.3 %; Platelet Count 299 K/uL (130-400); RDW Coefficient of Variation 13.2 % (11.5-14.5); RDW Standard Deviation 41.5 fL (36.4-46.3); Red Blood Count 4.85 M/uL (4.20-5.40); White Blood Count 10.05 K/ul (4.8-10.8)
[2023-03-27 08:35] LABS: BUN Creatinine Ratio 26.5 (10-20); Creatinine Clr Calc Pharmacy 79.7 ml/min; Est GFR (African American) 85.2 ml/min; Est GFR (Non-African American) 73.5 ml/min; Potassium 3.8 mmol/L (3.5-5.1)
[2023-03-27] MEDS: ENOXAPARIN INJ 40 MG/0.4 ML SYR SQ SCH (08:51)
[2023-03-27] MEDS: METOPROLOL SUCC 50MG EXT REL TAB PO SCH (08:51)
[2023-03-27] MEDS: VENLAFAXINE HCL XR 150 MG CAPXR PO SCH (08:52)
[2023-03-27] MEDS: ASPIRIN 81 MG ECTAB PO SCH (08:52)
[2023-03-27] MEDS: ROSUVASTATIN CALCIUM 5 MG TAB PO SCH (08:52)
[2023-03-27] MEDS: INSULIN ASPART PER UNIT CHARGE SC SCH ×3 (08:53→16:49)
[2023-03-27] MEDS: LANTUS PER UNIT CHARGE SQ SCH (09:14)
--- NOTE | 2023-03-27 11:45 | Ultrasound Report ---
DOPPLER ULTRASOUND OF THE RENAL ARTERIES CLINICAL HISTORY: Uncontrolled hypertension. COMPARISON STUDY: Right upper quadrant ultrasound September 14, 2018. TECHNIQUE: Color and duplex Doppler sonography of the abdominal aorta and renal arteries was lizbeth escudero FINDINGS: Peak systolic velocity within the abdominal aorta was 84 cm/s. Bilateral renal arteries and veins were patent. The peak systolic velocity within the right renal artery was 104 cm/s. Peak systo lic velocity within the left renal artery was 129 cm/s. There is no hydronephrosis. Waveforms within the segmental vessels of the kidneys were normal. Increased hepatic echogenicity was incidentally not ed. IMPRESSION: No sonographic evidence for renal artery stenosis. ACT 112: Negative or not required by law. Electronically signed by: Jv Ojeda M.D. 03/27/2023 11:43 AM
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
== END 2023-03-27 18:38 | disposition home or self-care (01) | DRG 305 ==
LOC: ED 15:52 → SUATTDRO 17:50 → 2S 17:50